=== PATIENT | male | born 1945 | race Caucasian/White ===

== ENCOUNTER 2021-06-22 14:44 | Observation (INO) | payer OTHER ==
[2021-06-22] MEDS ORDERED: ONDANSETRON 4 MG/2 ML VIAL IV PRN (15:40)
[2021-06-22 15:43] VITALS: BMI 41.6
--- NOTE | 2021-06-22 15:49 | P.HP ---
Certification for Inpatient Patient admitted to: Observation With expected LOS: <2 Midnights Practitioner: I am a practitioner with admitting privileges, knowledge of patient current condition, hospital course, and medical plan of care. Services: Services provided to patient in accordance with Admission requirements found in Title 42 Section 412.3 of the Code of Federal Regulations Patient History Date of Service: 06/22/21 Reason for admission: COVID, b/l PE History of Present Illness: 75-year-old male, PMH: A. fib on Xarelto, hypertension, hyperlipidemia. Transferred from [facility] for new diagnostic COVID-19 pneumonia and bilateral PEs. Patient has been having shortness of breath feeling tired, and cough over the last week. Progressively worsening, so he presented to [place]. He denies any recent fever/chills, no nausea/vomiting, no diarrhea, no abdominal pain. He reports strict compliance of all his medications including his Xarelto. Despite this, he is found to have bilateral small/subsegmental PEs. Work-up in urgent care/[facility]anding ER revealed significant elevated D- dimer, elevated BNP, imaging findings as noted above. Renal function is normal, no leukocytosis. Patient was noted to be hypoxic and dyspneic on exertion. On arrival to the hospital, patient is breathing comfortably at rest on room air, SPO2: 92-95%. Allergies No Known Allergies Allergy (Unverified 06/22/21 16:36) Home Medications: Atorvastatin Calcium [Lipitor] 40 mg PO BEDTIME 06/22/21 Candesartan Cilexetil [Atacand] 16 mg PO BEDTIME 06/22/21 Rivaroxaban [Xarelto] 1 tab PO BEDTIME 06/22/21 - Past Medical/Surgical History Diabetic: No -: HTN -: Hyperlipidemia -: HTN -: Afib -: pacemaker -: cardioversion Oct -: appy -: turbex - Family History Mother History Unknown: Yes -: Cancer - Social History Smoking Status: Never smoker Alcohol use: Yes CD- Drugs: No Caffeine use: Yes Place of Residence: Home Review of Systems 10-point ROS is otherwise unremarkable Physical Examination - Physical Exam General: Alert, In no apparent distress, Oriented x3 HEENT: Mucous membr. moist/pink, Sclerae nonicteric Neck: Supple Respiratory: Diminished, Crackles/rales Cardiovascular: Regular rate/rhythm, Edema (1-2+ edema to ankles bilaterally) Gastrointestinal: Soft and benign, Non-distended, No tenderness Musculoskeletal: No erythema, No tenderness Integumentary: No rashes, No significant lesion Neurological: Normal speech, Normal strength at 5/5 x4 extr, Normal affect Assessment and Plan - Advance Directives Does patient have a Living Will: Yes Does patient have a Durable POA for Healthcare: Yes Physician Review Additional Text: Problem List Acute hypoxemic respiratory failure secondary to COVID-19 pneumonia and bilateral PEs afib on xarelto h/o shanda-arrhythmia, s/p pacemaker HTN Chronic lower extremity edema -received 1mg/kg lovenox, regeneron, steroids, covid cocktail at [place] prior to transfer -admitted to ICU for overnight monitoring -patient was hypoxic / dyspneic on exertion. currently on room air, SpO2: 95% -patient was taking xarelto, and compliant, will switch to eliquis -start eliquis in AM -steroids, vitamin supplementation, O2 as needed -ambulatory pulse ox tomorrow, daily room air sats -pulm consulted VTE: eliquis Code: full Dispo: anticipate dc home in 24-48hrs Time Spent Managing Pts Care (In Minutes): 60
[2021-06-22] MEDS ORDERED: VALSARTAN 160 MG TAB PO SCH (21:00)
[2021-06-22] MEDS ORDERED: ATORVASTATIN 40 MG TAB PO SCH (21:00)
--- OUTSIDE RECORDS SUMMARY | 2021-06-23 00:06 | XMS REPORT | Continuity of Care Document ---
:1945 Author Organization [facility] t Address [address] [place] [address] Care Team Providers Name Role Phone MEGGAN Attending Clinician Unavailable MD MEGGAN Attending Clinician Unavailable ALBAN Attending Clinician Unavailable LANCE Attending Clinician Unavailable FASHAKEEL Admitting Clinician Unavailable MD MEGGAN Admitting Clinician Unavailable ALBAN Admitting Clinician Unavailable Problems This patient has no known problems. Allergies, Adverse Reactions, Alerts This patient has no known allergies or adverse reactions. Medications This patient has no known medications. Procedures This patient has no known procedures. Encounters Start End Encounter Admission Attending Care Care Encounter Source Date/Time Date/Time Type Type Clinicians Facility Department ID 2021-05-24 2021-05-24 Outpatient CRISTIAN BRODERICK [facility] [id number] [place] 00:00:00 00:00:[address] 2021-05-22 2021-05-22 Outpatient [facility]RISTIAN BRODERICK [facility] [id number] [place] 00:00:00 00:00:[address] 2021-01-30 2021-02-01 [facility] [id number] [place] 00:00:00 00:00:00 AMITKUMAR [address] 2020-11-08 2020-11-08 Outpatient LANCE [facility] [id number] [place] 00:00:00 00:00:00 GERARDO [address] 2020-10-18 2020-10-18 Outpatient [facility] [id number] [place] 00:00:00 00:00:[address] Results Test Description Test Time Test Comments Results Result Comments Source SARS-CoV-2 (COVID-19) RNA [Presence] in Respiratory sp ecimen by 2021-05-22 18:52:08 NORBERTO with probe detection Test Item Value Reference Range Interpretation Comme nts SARS-CoV-2 (COVID-19) RNA [Presence] in Respiratory Not detected No t-Detected specimen by NORBERTO with probe detection (test code = 81067-5) Whether patient is employed in a healthcare setting (test code = 29421-9) Whether the patient has symptoms related to condition of interest (test code = 42202-4) Patient was hospitalized because of this condition (test code = 05258-7) Whether the patient was admitted to intensive care unit (ICU) for condition of interest (test code = 50273-2) Whether patient resides in a congregate care setting (test code = 01467-9)
[2021-06-23 05:09] LABS: Absolute Lymphocytes (CBC) 1.3 K/uL (0.7-4.9); Basophils % 0.5 % (0-1.3); Hematocrit 45.1 % (39.6-49.0); Lymphocytes % 11.6 % (15.3-44.8); MPV 7.7 fL (7.6-11.3); RBC Red Blood Cell Count 5.05 M/uL (4.33-5.43)
[2021-06-23 05:34] LABS: ALT/SGPT 35 U/L (12-78); AST/SGOT 33 U/L (15-37); Albumin 2.5 g/dL (3.4-5.0); Alkaline Phosphatase 121 U/L (45-117); BUN Blood Urea Nitrogen 15 mg/dL (7-18); Bicarbonate 24 mmol/L (21-32); Bilirubin Total 0.6 mg/dL (0.2-1.0); Glucose Level 146 mg/dL (74-106); Magnesium 2.4 mg/dL (1.8-2.4); NT PRO-BNP 3764 pg/mL (<125); Potassium 4.1 mmol/L (3.5-5.1); Protein, Total 6.9 g/dL (6.4-8.2); Sodium Level 141 mmol/L (136-145)
--- NOTE | 2021-06-23 05:43 | P.PN ---
Date of Service: 06/23/21 Subjective: ROS: 10 point ROS as noted above, otherwise negative Physical exam GEN: Alert, oriented, NAD HEENT: Normal conjunctiva, sclera anicteric CV: Regular rate and rhythm, no edema Pulm: Nonlabored respiration on room air ABD: Soft, nontender, nondistended MSK: No joint tenderness Integumentary: No rashes Neuro: Normal speech, normal affect Problem List Acute hypoxemic respiratory failure secondary to COVID-19 pneumonia and bilateral PEs afib on xarelto h/o shanda-arrhythmia, s/p pacemaker HTN Chronic lower extremity edema -received 1mg/kg lovenox, regeneron, steroids, covid cocktail at [place] prior to transfer -admitted to ICU for overnight monitoring -patient was hypoxic / dyspneic on exertion. on room air on arrival, SpO2: 95% -patient was taking xarelto, and compliant, will switch to eliquis -start eliquis in AM -steroids, vitamin supplementation, O2 as needed -ambulatory pulse ox today, daily room air sats -pulm consulted VTE: eliquis Code: full Dispo: anticipate dc home in next 24hrs, may need home O2 Time Spent Managing Pts Care (In Minutes): 35
[2021-06-23 06:12] LABS: C-Reactive Protein 78.8 mg/L (<3.00); Ferritin 576.9 ng/mL (26-388)
--- NOTE | 2021-06-23 07:08 | RAD REPORT ---
EXAM DESCRIPTION: RAD - Chest Single View - 06/23/2021 7:02 am CLINICAL HISTORY: f/u COVID, hypoxia COMPARISON: CHEST PA AND LAT 2 VIEW dated 07/21/2011 FINDINGS: Lines: None. Lungs: Mild scattered bilateral airspace diseas. Chronic low lung volumes. Pleural: No significant pleural effusions or pneumothorax. Cardiac: Enlarged cardiac silhouette. Pacemaker. Bones: No acute fractures. Other: IMPRESSION: Mild diffuse bilateral airspace opacities which could reflect multifocal pneumonia, incl uding Covid-19.
[2021-06-23] MEDS ORDERED: APIXABAN 5 MG TABLET PO SCH (09:00)
[2021-06-23] MEDS ORDERED: dexAMETHasone 4 MG TAB PO SCH (09:00)
[2021-06-23] MEDS ORDERED: VITAMIN D 1000 UNIT TAB PO SCH (09:00)
--- NOTE | 2021-06-23 10:55 | P.CNS ---
Date of Consult: 06/22/21 Reason for Consult: Mills virus pneumonia possible PE Chief Complaint: COVID, b/l PE History of Present Illness: Patient is 75 years of age got sick for a past week admitted from [facility] emergency room with a diagnosis of mills virus pneumonia and insight acute thrombosis in the lungs he feels fine oxygen level is satisfactory he is off oxygen Allergies No Known Allergies Allergy (Unverified 06/22/21 16:36) Home Medications: Atorvastatin Calcium [Lipitor] 40 mg PO BEDTIME 06/22/21 Candesartan Cilexetil [Atacand] 16 mg PO BEDTIME 06/22/21 Rivaroxaban [Xarelto] 1 tab PO BEDTIME 06/22/21 - Past Medical/Surgical History Diabetic: No -: HTN -: Hyperlipidemia -: HTN -: Afib -: pacemaker -: cardioversion Oct -: appy -: turbex - Family History Mother History Unknown: Yes Medical History: Cancer - Social History Alcohol use: Yes CD- Drugs: No Caffeine use: Yes Place of Residence: Home Review of Systems 10-point ROS is otherwise unremarkable Physical Examination Temp Pulse Resp BP Pulse Ox 97 F 60 18 157/88 H 94 06/23/21 04:00 06/23/21 08:00 06/23/21 08:00 06/23/21 08:00 06/23/21 08:00 General: Alert, In no apparent distress, Oriented x3 Respiratory: Crackles/rales Cardiovascular: No edema, Normal S1 S2 Laboratory Data (last 24 hrs) 06/23/21 04:49: Sodium 141, Potassium 4.1, BUN 15, Creatinine 0.79, Glucose 146 H, Magnesium 2.4, Total Bilirubin 0.6, AST 33, ALT 35, Alkaline Phosphatase 121 H 06/23/21 04:49: WBC 11.00 H, Hgb 14.9, Hct 45.1, Plt Count 360 - Problems (1) Pneumonia due to coronavirus disease 2019 Current Visit: Yes Status: Acute Plan: Patient is 75 years of age admitted with mills virus pneumonia is been vaccinated with fires are vaccine presented to the all tests emergency room CT scan showed small occlusive a nonocclusive thrombi involving the subsegmental branches most likely insitu thrombosis from mills virus no evidence of heart strain bilateral extensive ground-glass changes consistent with mills virus pneumonia/patient is already on Xarelto continue with current dose of Xarelto add small dose of aspirin patient can be discharged home on Decadron 2 mg twice a day for about 10 days follow-up with me in 2 weeks evaluate for oxygen use at home continue with Xarelto 20 mg once a day
[2021-06-23 12:15] VITALS: O2SAT 98
--- NOTE | 2021-06-23 13:08 | RAD REPORT ---
EXAM DESCRIPTION: US - Extrem Venous W Compress Sonido - 06/23/2021 12:12 pm CLINICAL HISTORY: Swelling COMPARISON: None. TECHNIQUE: Real-time sonographic evaluation of the bilateral lower extremity deep venous systems was performed. FINDINGS: Normal compressibility, flow augmentation, phasic flow and spontaneous flow is identified in both the left and right lower extremity deep venous systems. No intraluminal filling defects seen. IMPRESSION: No DVT in either lower extremity.
[2021-06-23 14:25] VITALS: TEMP 97.8
[2021-06-23 14:27] VITALS: BP 147/69
--- NOTE | 2021-06-23 16:56 | P.DS ---
Admission Date: 06/22/21 Discharge Date: 06/23/21 Disposition: ROUTINE DISCHARGE Discharge Condition: GOOD Reason for Admission: COVID, b/l PE Consultations: Pulmonology - Dr. Rubio Procedures: Extremity U/S (06/23): FINDINGS: Normal compressibility, flow augmentation, phasic flow and spontaneous flow is identified in both the left and right lower extremity deep venous systems. No intraluminal filling defects seen. IMPRESSION: No DVT in either lower extremity. CXR (06/23): IMPRESSION: Mild diffuse bilateral airspace opacities which could reflect multifocal pneumonia, including Covid-19. Problem List Acute hypoxemic respiratory failure secondary to COVID-19 pneumonia and bilateral PEs afib on xarelto h/o shanda-arrhythmia, s/p pacemaker HTN Chronic lower extremity edema Brief History of Present Illness: 75-year-old male, PMH: A. fib on Xarelto, hypertension, hyperlipidemia. [facility]red [facility] for new diagnostic COVID-19 pneumonia and bilateral PEs. Patient has been having shortness of breath feeling tired, and cough over the last week. Progressively worsening, so he presented to [place]. He denies any recent fever/chills, no nausea/vomiting, no diarrhea, no abdominal pain. He reports strict compliance of all his medications including his Xarelto. Despite this, he is found to have bilateral small/subsegmental PEs. Work-up in urgent care/freestanding ER revealed significant elevated D- dimer, elevated BNP, imaging findings as noted above. Renal function is normal, no leukocytosis. Patient was noted to be hypoxic and dyspneic on exertion. On arrival to the hospital, patient is breathing comfortably at rest on room air, SPO2: 92-95%. Patient was treated with steroids, vitamin supplementation, and Regeneron. Hospital Course: Received Lovenox 1mg/kg at [place]. Initially transitioned to Eliquis. Pulmonology was consulted and did not feel this was failure of Xarelto since it was questionable subsegmental PEs in setting of COVID pneumonia. Patient was treated with steroids and vitamin supplementation. He did not require oxygen supplementation at rest, nor with ambulation. He was deemed stable for discharge home to continue his Xarelto at current dose and steroids. Follow up: PCP in 3-5 days Pulmonology in ~1-2 weeks. Vital Signs/Physical Exam: Temp Pulse Resp BP Pulse Ox 97.8 F 60 19 147/69 H 94 06/23/21 12:00 06/23/21 14:00 06/23/21 14:00 06/23/21 14:00 06/23/21 14:00 General: Alert, In no apparent distress, Oriented x3 HEENT: Sclerae nonicteric Respiratory: Clear to auscultation bilaterally, Diminished (at bases bilaterally) Cardiovascular: Regular rate/rhythm, Edema (trace-1+ b/l to ankles) Gastrointestinal: Soft and benign, Non-distended, No tenderness Musculoskeletal: No tenderness Integumentary: No rashes, No significant lesion Neurological: Normal speech, Normal affect Laboratory Data at Discharge: WBC 11.00 K/uL (4.3-10.9) H 06/23/21 04:49 Hgb 14.9 g/dL (13.6-17.9) 06/23/21 04:49 Hct 45.1 % (39.6-49.0) 06/23/21 04:49 Plt Count 360 K/uL (152-406) 06/23/21 04:49 Sodium 141 mmol/L (136-145) 06/23/21 04:49 Potassium 4.1 mmol/L (3.5-5.1) 06/23/21 04:49 BUN 15 mg/dL (7-18) 06/23/21 04:49 Creatinine 0.79 mg/dL (0.55-1.3) 06/23/21 04:49 Glucose 146 mg/dL (74-106) H 06/23/21 04:49 Magnesium 2.4 mg/dL (1.8-2.4) 06/23/21 04:49 Total Bilirubin 0.6 mg/dL (0.2-1.0) 06/23/21 04:49 AST 33 U/L (15-37) 06/23/21 04:49 ALT 35 U/L (12-78) 06/23/21 04:49 Alkaline Phosphatase 121 U/L (45-117) H 06/23/21 04:49 Home Medications: Atorvastatin Calcium [Lipitor] 40 mg PO BEDTIME 06/22/21 Candesartan Cilexetil [Atacand] 16 mg PO BEDTIME 06/22/21 Rivaroxaban [Xarelto] 1 tab PO BEDTIME 06/22/21 Aspirin [Aspirin EC 81 MG] 81 mg PO DAILY 30 Days #30 tablet. 06/23/21 dexAMETHasone [Dexamethasone] 2 mg PO BID 14 Days #28 tablet 06/23/21 New Medications: Aspirin [Aspirin EC 81 MG] 81 mg PO DAILY 30 Days #30 tablet. dexAMETHasone [Dexamethasone] 2 mg PO BID 14 Days #28 tablet Physician Discharge Instructions: PROBLEM: COVID-19 Pneumonia GOAL: Clear understanding of disease process INSTRUCTIONS: You were found to have COVID-19 pneumonia complicated by small subsegmental pulmonary emboli. You were treated with anticoagulation and steroids with improvement of your symptoms. You were evaluated at rest and with ambulation and did not require oxygen supplementation. Pulmonology, Dr. Rubio was consulted and reviewed the imaging. Recommended continuing the current dose of Xarelto and adding 81mg aspirin daily. You are discharged home with 14 days of steroid medication. Follow up with your PCP in within 1 week. Follow up with Dr. Rubio in 1-2 weeks. If you have any questions regarding hospital stay, feel free to call [phone]. Continue home medications as previously prescribed, no other changes in your medications. Diet: AHA Activity: Ad atif DME DME: Date Ordered: Name of Company: [employer] Services Needed: None Name of Company: Date or Referral: IMMUNIZATION Influenza Vaccine Indicated: No Influenza Vaccine Given: Date Given: Pneumonia Vaccine Indicated: No Pneumonia Vaccine Given: Date Given: Diet: AHA Activity: Ad atif Time spent managing pt's care (in minutes): 45
== END 2021-06-23 14:50 | disposition home or self-care (01) ==
LOC: 3RD-ICU 14:44 → INTOOBSV 14:44
PROVIDERS: ADMIT Hospitalist; ATTEND Hospitalist
DX: U07.1 COVID-19 (principal); J12.82 Pneumonia due to coronavirus disease 2019; J96.01 Acute respiratory failure with hypoxia; I26.99 Other pulmonary embolism without acute cor pulmonale; I48.91 Unspecified atrial fibrillation; I10 Essential (primary) hypertension; R60.0 Localized edema; I49.8 Other specified cardiac arrhythmias; E78.5 Hyperlipidemia, unspecified; Z79.01 Long term (current) use of anticoagulants; Z95.0 Presence of cardiac pacemaker; Z80.9 Family history of malignant neoplasm, unspecified
CPT/HCPCS: 85025; 36415; 83735; 85379; 82728; 80053; 83880; 86140; 71045; 93970; 94760 ×2; G0378 ×3; J8540

== ENCOUNTER 2024-03-30 20:15 | Emergency (ER) | payer OTHER ==
[2024-03-30] MEDS ORDERED: ACETAMINOPHEN 500 MG TAB ONE (20:45)
--- NOTE | 2024-03-30 21:29 | RAD REPORT ---
EXAM DESCRIPTION: CT - [id number] - 03/30/2024 9:21 pm CLINICAL HISTORY: Trauma, head and neck injury. TRAUMA COMPARISON: <Comparisons> TECHNIQUE: Axial 5 mm thick images of the head were obtained. Axial 2 mm thick images of the cervical spine were obtained with sagittal and coronal reconstruction images generated and reviewed. All CT scans are performed using dose optimization technique as appropriate and may include automated exposure control or mA/KV adjustment according to patient size. FINDINGS: CT HEAD WITHOUT CONTRAST: No acute hemorrhage, hydrocephalus or extra-axial collection is identified.No areas of brain edema or midline shift. The paranasal sinuses and mastoids are clear.The calvarium is intact. Left frontal scalp hematoma. CT CERVICAL SPINE WITHOUT CONTRAST: No fracture or subluxation.Mild cervical spondylosis.No prevertebral soft tissues swelling is identif ied. IMPRESSION: No acute intracranial or cervical spine findings.
--- NOTE | 2024-03-30 21:39 | RAD REPORT ---
EXAM DESCRIPTION: RAD - Chest Single View - 03/30/2024 9:32 pm CLINICAL HISTORY: RIB PAIN - LEFT Chest pain. COMPARISON: <Comparisons> FINDINGS: Portable technique limits examination quality. The lungs are grossly clear. The heart is normal in size. No displaced fractures.Dual lead pacer deidra ce. IMPRESSION: No acute intrathoracic process suspected.
--- NOTE | 2024-03-30 21:54 | ER ---
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 Pt noted to have bruising cm10 on to left eye. Pt reports taking a daily aspirin. Pt also reports pain to left side of ribs. No LOC. Coronavirus screen: Client denies travel out of the [place] in the last 14 days. At this time, the client does not indicate any symptoms associated with coronavirus-19. Ebola Screen: Patient denies travel to an Ebola-affected area in the 21 days before illness onset. No symptoms or risks identified at this time. Initial Sepsis Screen: Does the patient meet any 2 criteria? No. Patient's initial sepsis screen is negative. Does the patient have a suspected source of infection? No. Patient's initial sepsis screen is negative. Risk Assessment: Do you want to hurt yourself or someone else? Patient reports no desire to harm self or others. Onset of symptoms was March 30, 2024. 20:28 Method Of Arrival: Ambulatory cm10 20:28 Acuity: CATHY 3 cm10 Triage Assessment: 20:30 General: Appears in no apparent distress. comfortable, Behavior is calm, cooperative. cm10 Neuro: No deficits noted. Level of Consciousness is awake, alert, obeys commands, Oriented to person, place, time, situation, Appropriate for age. Respiratory: No deficits noted. Airway is patent Respiratory effort is even, unlabored, Respiratory pattern is regular, symmetrical. Historical: - Allergies: 20:30 No Known Allergies; cm10 - PMHx: 20:30 Hypertensive disorder; cm10 - PSHx: 20:30 Appendectomy; Pacemaker; cm10 - Immunization history:: Adult Immunizations up to date. - Infectious Disease History:: Denies. - Social history:: Smoking status: Patient denies any tobacco usage or history of. Screenin:[facility] ED Fall Risk Assessment (Adult) History of falling in the last 3 months, vc1 including since admission Yes- single mechanical fall (1 pt) Confusion or Disorientation No (0 pts) Intoxicated or Sedated No (0 pts) Impaired Gait No (0 pts) Mobility Assist Device Used No (0 pt) Altered Elimination No (0 pt) Score/Fall Risk Level 0 - 2 = Low Risk Oriented to surroundings, Maintained a safe environment, Educated pt \T\ family on fall prevention, incl call for assistance when getting out of bed. Abuse screen: Denies threats or abuse. Nutritional screening: No deficits noted. Tuberculosis screening: No symptoms or risk factors identified. Assessment: 20:48 General: Appears in no apparent distress. comfortable, obese, well groomed, well vc1 developed, well nourished, Behavior is calm, cooperative, appropriate for age. Pain: Complains of pain in inner aspect of left eyebrow, middle aspect of left eyebrow, outer aspect of left eyebrow and left supraorbital ridge Pain does not radiate. Neuro: Level of Consciousness is awake, alert, obeys commands, Oriented to person, place, time, situation, Appropriate for age. Cardiovascular: No deficits noted. Heart tones S1 S2 Capillary refill < 3 seconds Patient's skin is warm and dry. Respiratory: Airway is patent Respiratory effort is even, unlabored, Respiratory pattern is regular, symmetrical, Breath sounds are clear bilaterally. GI: Abdomen is round non-distended. : No deficits noted. No signs and/or symptoms were reported regarding the genitourinary system. EENT: No deficits noted. No signs and/or symptoms were reported regarding the EENT system. Derm: Bruising that is dark purple, on left eye. Musculoskeletal: No deficits noted. No signs and/or symptoms reported regarding the musculoskeletal system. 22:10 Reassessment: No changes from previously documented assessment. Patient and/or family vc1 updated on plan of care and expected duration. Pain level reassessed. Patient is alert, oriented x 3, equal unlabored respirations, skin warm/dry/pink. Vital Signs: 20:28 BP 108 / 65; Pulse 78; Resp 16; Temp 98.2(O); Pulse Ox 97% on R/A; Weight 99.79 kg; cm10 Height 5 ft. 2 in. ; Pain 4/10; 22:10 BP 106 / 64; Pulse 76; Resp 16; Pulse Ox 98% ; vc1 20:28 Body Mass Index 40.24 (99.79 kg, 157.48 cm) cm10 20:28 Pain Scale: Adult cm10 ED Course: 20:17 Patient arrived in ED. ra3 20:22 Suzette Wagner FNP-C [facility]. kb 20:22 Dave Thomas MD is Attending Physician. kb 20:30 Triage completed. cm10 20:31 Arm band placed on Patient placed in an exam room. cm10 20:48 Lydia Morales, RN is Primary Nurse. vc1 20:50 Patient has correct armband on for positive identification. Bed in low position. Call vc1 light in reach. 21:53 CT Head C Spine In Process Unspecified. EDMS 21:53 Chest Single View XRAY In Process Unspecified. EDMS 22:10 No provider procedures requiring assistance completed. Patient did not have IV access vc1 during this emergency room visit. 22:10 Wound care: ice pack applied. vc1 22:11 Provided Education on: pain management; ice pack. vc1 Administered Medications: 20:48 Drug: Acetaminophen PO 1000 mg PO once Route: PO; vc1 22:12 Follow up: Response: No adverse reaction; Marked relief of symptoms; Pain is decreased vc1 Medication: 20:50 VIS not applicable for this client. vc1 Outcome: 21:49 Discharge ordered by . kb 22:11 Discharged to home ambulatory, vc1 22:11 Condition: good 22:11 Discharge instructions given to patient, Instructed on discharge instructions, follow up and referral plans. Demonstrated understanding of instructions, follow-up care, 22:12 Patient left the ED. vc1 Signatures: Dispatcher [employer] EDMS Suzette Wagner FNP-C FNP-Ckb Calcote, Vanessa, RN RN vc1 Paige Baer RN RN cmKiara Jiménez ra3
--- NOTE | 2024-03-30 21:54 | EDPHYS ---
Physician Documentation [facility] Name: Federico Nj Age: 78 yrs Sex: Male : 1945 Arrival Date: 03/30/2024 Time: 20:15 Bed 12 Private MD: ED Physician Dave Thomas HPI: 03/30 20:57 This 78 yrs old Male presents to ER via Ambulatory with complaints of Fall Injury, kb Facial Injury. 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 Pt states he tripped in the kitchen and fell. Denies loc. Reports slight pain to left lateral chest as well. Historical: - Allergies: 20:30 No Known Allergies; cm10 - PMHx: 20:30 Hypertensive disorder; cm10 - PSHx: 20:30 Appendectomy; Pacemaker; cm10 - Immunization history:: Adult Immunizations up to date. - Infectious Disease History:: Denies. - Social history:: Smoking status: Patient denies any tobacco usage or history of. ROS: 20:55 Constitutional: As per HPI kb Exam: 20:55 Constitutional: This is a well developed, well nourished patient who is awake, alert, kb and in no acute distress. Head/Face: Normocephalic, atraumatic. ENT: Moist Mucous membranes Cardiovascular: Regular rate Respiratory: Respirations even and unlabored. No increased work of breathing. Talking in full sentences Abdomen/GI: Soft, non-tender. No distention MS/ Extremity: Pulses equal, no cyanosis. Neurovascular intact. Full, normal range of motion. Neuro: Awake and alert, GCS 15, oriented to person, place, time, and situation. Moves all extremities. Normal gait. 20:55 Eyes: Periorbital structures: swelling, that is mild, on the left supraorbital ridge, ecchymosis, that is mild, on the left supraorbital ridge, 20:55 Chest/axilla: Inspection: normal, Palpation: tenderness, that is mild, of the left lateral anterior chest, that totally reproduces the patient's complaints, Vital Signs: 20:28 BP 108 / 65; Pulse 78; Resp 16; Temp 98.2(O); Pulse Ox 97% on R/A; Weight 99.79 kg; cm10 Height 5 ft. 2 in. ; Pain 4/10; 22:10 BP 106 / 64; Pulse 76; Resp 16; Pulse Ox 98% ; vc1 20:28 Body Mass Index 40.24 (99.79 kg, 157.48 cm) cm10 20:28 Pain Scale: Adult cm10 MDM: 20:22 Patient medically screened. kb 20:57 Differential diagnosis: contusion, fracture. Data reviewed: vital signs, nurses notes. kb 21:48 Counseling: I had a detailed discussion with the patient and/or guardian regarding the kb historical points, exam findings, and any diagnostic results supporting the discharge/admit diagnosis, radiology results, the need for outpatient follow up, a family practitioner, to return to the emergency department if symptoms worsen or persist or if there are any questions or concerns that arise at home. 03/30 20:31 Order name: CT Head C Spine; Complete Time: 21:53 kb 03/30 20:31 Order name: Chest Single View XRAY; Complete Time: 21:53 kb Administered Medications: 20:48 Drug: Acetaminophen PO 1000 mg PO once Route: PO; vc1 22:12 Follow up: Response: No adverse reaction; Marked relief of symptoms; Pain is decreased vc1 Disposition: 03/31 01:21 Co-signature as Attending Physician, Dave Thomas MD I agree with the assessment and [facility] plan of care. Disposition Summary: 03/30/24 21:49 Discharge Ordered Notes: Location: Home kb Condition: Stable kb Diagnosis - Fall on same level, unspecified kb - Unspecified injury of head, initial encounter kb Followup: kb - With: Emergency Department - When: As needed - Reason: Worsening of condition Followup: kb - With: Private Physician - When: 2 - 3 days - Reason: Recheck today's complaints, Continuance of care, Re-evaluation by your physician Discharge Instructions: - Discharge Summary Sheet kb - Chest Contusion, Adult, [id number] kb - Head Injury, Adult, [id number] kb Forms: - Medication Reconciliation Form kb - Antibiotic Education kb - Prescription Opioid Use kb - Patient Portal Instructions kb - Leadership Thank You Letter kb Signatures: Dispatcher [employer] EDSuzette Gan, AVILAC ANDREAS-Dave Painting MD MD cha Calcote, Vanessa RN RN vc1 Paige Baer RN RN cm10 Corrections: (The following items were deleted from the chart) 03/30 20:31 20:31 Head C Spine MPR Wo Con+CT.RAD.BRZ ordered. EDMS EDMS : 20:32 Chest Single View+RAD.RAD.BRZ ordered. EDMS EDMS
[2024-03-30 22:53] VITALS: TEMP 98.2
[2024-03-30 22:55] VITALS: BP 106/64; O2SAT 98
== END 2024-03-30 22:12 | disposition home or self-care (01) ==
LOC: ER 20:15
DX: S09.90XA Unspecified injury of head, initial encounter (principal); R07.9 Chest pain, unspecified; W18.30XA Fall on same level, unspecified, initial encounter; I10 Essential (primary) hypertension; Z95.0 Presence of cardiac pacemaker
CPT/HCPCS: 70450; 71045; 72125

== ENCOUNTER 2024-10-27 12:00 | Day surgery (SDC) | payer OTHER ==
[2024-10-24 14:35] LABS: Absolute Basophils 0.1 K/uL (0-0.5); Absolute Eosinophils 0.1 K/uL (0-0.5); Absolute Lymphocytes (CBC) 2.1 K/uL (0.7-4.9); Absolute Monocytes 0.6 K/uL (0.1-1.3); Absolute Neutrophil 3.7 K/uL (1.8-8.0); Basophils % 0.8 % (0-1.3); Eosinophils % 1.2 % (0-4.4); Hematocrit 42.4 % (39.6-49.0); Hemoglobin 14.3 g/dL (13.6-17.9); Lymphocytes % 31.8 % (15.3-44.8); MCH 30.6 pg (27.0-35.0); MCHC 33.9 g/dL (32.0-36.0); MCV 90.4 fL (80-100); MPV 8.6 fL (7.6-11.3); Monocytes % 9.4 % (3.3-12.3); Neutrophils % 56.8 % (41.7-73.7); Nucleated Red Blood Cells % 0.1 % (0-0); Platelets 232 thou/uL (152-406); RBC Red Blood Cell Count 4.68 M/uL (4.33-5.43); Red Cell Distribution Width 13.5 % (12.1-15.2)
[2024-10-24 14:40] LABS: PT Prothrombin Time 12.7 SECONDS (10-13.0); PTT, Activated Partial Thromb 34.7 SECONDS (27.2-37.4); Protime INR 1.12
[2024-10-24 14:45] LABS: Anion Gap 10.8 mEq/L (5.0-15.0); Potassium 3.8 mEq/L (3.5-5.1)
--- NOTE | 2024-10-24 15:56 | RAD REPORT ---
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 CARDIAC/MEDIASTINUM: Stable size and configuration. UPPER ABDOMEN: No significant abnormality. BONES: No acute abnormality. LINES/TUBES/OTHER: Pacemaker present. IMPRESSION: Likely some mild basilar atelectasis but otherwise no acute process.
--- NOTE | 2024-10-26 12:36 | EKG ---
Test Date: 2024-10-24 Test Time: 13:39:49 Hot Roll Laminator: HERIBERTO MEASUREMENT RESULTS: Intervals: Rate: 65 OR: QRSD: 122 QT: 438 QTc: 455 [place]: P: OR: QRS: 108 T: -60 INTERPRETIVE STATEMENTS: Normal sinus rhythm Rightward axis Anterior infarct, age undetermined T wave abnormality, consider inferior ischemia Abnormal ECG Compared to ECG 07/21/2011 16:08:47 Right-axis deviation now present First degree AV block no longer present Left anterior fascicular block no longer present Myocardial infarct finding still present T-wave abnormality still present Possible ischemia still present Electronically Signed On 10-26-24 12:27:46 CDT by Genaro Hood
[2024-10-27] MEDS ORDERED: NA CHLORIDE 0.9% 500 ML ONE (12:30)
[2024-10-27] MEDS ORDERED: HEPA 1000U/500MLS 2,000 UNIT/1,000 ML BAG IV ONE (14:01)
[2024-10-27] MEDS ORDERED: HEPARIN 5000 UNIT/ML 1 ML VIAL ONE (14:02)
[2024-10-27] MEDS ORDERED: LIDOCAINE 1% 20 ML MDV ONE (14:02)
[2024-10-27] MEDS ORDERED: ATROPINE SULF 1 MG/10 ML SYR IV ONE (14:02)
[2024-10-27] MEDS ORDERED: HEPARIN 10,000 UNIT/10 ML VIAL IV ONE (14:02)
[2024-10-27] MEDS ORDERED: MIDAZOLAM HCL 2 MG/2 ML INJ ONE (14:02)
[2024-10-27] MEDS ORDERED: FENTANYL CITR 100 MCG/2 ML ONE (14:03)
[2024-10-27] MEDS ORDERED: VERAPAMIL HCL 10 MG/4 ML VIAL IV ONE (14:11)
[2024-10-27] MEDS ORDERED: TICAGRELOR 90 MG TABLET PO ONE (15:05)
[2024-10-27] MEDS ORDERED: ASPIRIN 325 MG TAB ONE (15:05)
[2024-10-27 19:26] VITALS: BP 116/67; O2SAT 96
--- NOTE | 2024-10-27 22:51 | OP ---
Date of Procedure: 10/27/2024 Surgeon: MACY KIDD Procedures Performed: 1. Coronary angiogram. 2. Left heart catheterization. 3. Right heart catheterization. 4. PCI of severe mid LAD stenosis, used 3.5 x 32 mm drug-eluting stent, post dilated the proximal seg ment to 4.0 using 4.0 x 12 NC balloon. Indications: 1. Aortic valve stenosis. 2. Chest pain. Access: 1. Right radial artery 6-Cypriot, closed with TR band. 2. Right IJ 7-Cypriot, closed with manual pressure. Complications: None. Bleeding: Less than 50 mL. Anesthesia: Total sedation time was close to 100 minutes, used fentanyl and Versed. Description Of Procedure: After risks, benefits, and alternatives were explained, the patient agreed to procedure and signed informed consent. The patient was brought into cardiac catheterization labo ratory, prepped and draped in sterile fashion. Then, I accessed right IJ using micropuncture kit, ul trasound guidance, and placed a 7-Cypriot [place] sheath, and then I accessed right radial artery usi ng pediatric micropuncture kit and ultrasound guidance, and placed a 6-Cypriot [place] sheath and then took a 7-Cypriot balloon-tipped [place] catheter through the IJ access into the right atrium, right vent ricle, pulmonary artery and wedge, and obtained waveform and pressure and then obtained cardiac outpu t by thermodilutional method, and then removed the [place]. IJ access was removed. Manual pressure was applied for hemostasis with good hemostasis and then we took the [place] catheter through the radial a ccess into the aortic root, engaged left main, took standard views, and then the RCA, took standard v iews and then over the wire, the catheter was pushed across the aortic valve into the LV, measured th e LVEDP. Pullback did not record any gradient. Then, we gave systemic heparin to assure ACT level a benjamin 250 throughout the procedure, loaded with Brilinta 180 and aspirin 81 mg and then took an EBU 4 guide into aortic root, engaged left main, took run-through wire into the LAD and then using a 3.0 an d then 3.5 balloon, lesion expanded very well. Subsequently took a 3.5 x 32 mm Synergy drug-eluting stent across the stenosis very well and stent was deployed successfully and then I used a 4.0 x 12 mm balloon to post-dilate the proximal segment of the stent and had this stented to the proximal LAD. Excellent results at the end. Wires were removed and final angiogram was satisfactory and removed th e catheter and the guide and the sheath and placed TR band with good hemostasis. Findings: 1. Left main is very long shaft and it has proximal 20% stenosis. 2. LAD; proximal segment is normal. In the mid segment, there is a focal 90% stenosis, heavily calci fied, then 80% and then 70% stenosis, post successful placement of a long 3.5 x 32 mm Synergy drug-el uting stent. Then, the LAD in the mid to distal segment, there is focal 40% stenosis. Diagonal bran ches with luminal irregularity. The rest of the LAD is normal. 3. Left circumflex is large and dominant vessel, proximal 30%. OM has mid 50% and then distally in t he left PDA, there is 20% stenosis. 4. RCA has proximal 40% stenosis and it is rather small vessel. 5. Elevated LVEDP at 20 mmHg. Right heart catheterization numbers: RA pressure was 11, RV pressure was 39/4, mean of 11. PA press ure is 39/23, mean of 29. Pulmonary wedge pressure was 8 mmHg. LVEDP between 15 and 20 mmHg. Cardi ac output averages 5.6 L/minute and the gradient across the aortic valve is only 17 mmHg and aortic v alve area was 1.63 cm2. Conclusions: 1. Severe mid LAD stenosis, status post successful PCI as above. 2. Moderate aortic valve stenosis, which is flow low gradient. Plan: Aspirin, Brilinta, high-dose statin. Follow up with me in the office in 1 week. SR/MODL Voice ID: [id number] Report ID: [id number]
== END 2024-10-27 19:15 | disposition home or self-care (01) ==
LOC: CCL 12:00
PROVIDERS: ATTEND Internal Medicine
PROC: 4A023N8 Measurement of Cardiac Sampling and Pressure, Bilateral, Percutaneous Approach (ICD-10-PCS; principal; 2024-10-27)
PROC: B2111ZZ Fluoroscopy of Multiple Coronary Arteries using Low Osmolar Contrast (ICD-10-PCS; 2024-10-27)
PROC: 027034Z Dilation of Coronary Artery, One Artery with Drug-eluting Intraluminal Device, Percutaneous Approach (ICD-10-PCS; 2024-10-27)
DX: I25.110 Atherosclerotic heart disease of native coronary artery with unstable angina pectoris (principal); I35.0 Nonrheumatic aortic (valve) stenosis; I65.22 Occlusion and stenosis of left carotid artery; I10 Essential (primary) hypertension; I48.0 Paroxysmal atrial fibrillation; E78.2 Mixed hyperlipidemia; I27.20 Pulmonary hypertension, unspecified; G47.33 Obstructive sleep apnea (adult) (pediatric); E66.01 Morbid (severe) obesity due to excess calories
CPT/HCPCS: 93460; C9600; 36415; 71046; 76937; 80048; 85025; 85347; 85610; 85730; 93005; 99152; 99153; C1725; C1893; J0461; J1644; J2003; J2250; J3010; J7040; Q9967

== ENCOUNTER 2024-10-28 05:37 | Inpatient (IN) | payer OTHER ==
--- NOTE | 2024-10-28 06:32 | RAD REPORT ---
EXAMINATION: Chest Single View CLINICAL HISTORY: slurry speech COMPARISON: March 30, 2024 FINDINGS: The lungs are clear. There is no pleural effusion or pneumothorax. The cardiomediastinal silhouette i s without acute process. The osseous structures are without acute process. A pacemaker device is in satisfactory position. IMPRESSION: No acute process. RECOMMENDATIONS: Electronically signed by: Yg Franco MD 10/28/2024 06:19 AM CDT RP Due to temporary technical issues with the PACS/Stigni.bg reporting system, reports are being analy d by the in-house radiologist without review as a courtesy to ensure prompt reporting the interpreting radiologist is fully responsible for the content of the report. Transcribed Date/Time: 10/28/2024 6:32 AM
[2024-10-28 06:33] LABS: Absolute Basophils 0.1 K/uL (0-0.5); Absolute Eosinophils 0.1 K/uL (0-0.5); Absolute Lymphocytes (CBC) 2.2 K/uL (0.7-4.9); Absolute Monocytes 0.7 K/uL (0.1-1.3); Absolute Neutrophil 4.5 K/uL (1.8-8.0); Basophils % 0.8 % (0-1.3); Eosinophils % 1.4 % (0-4.4); Hematocrit 42.6 % (39.6-49.0); Hemoglobin 14.1 g/dL (13.6-17.9); Lymphocytes % 29.4 % (15.3-44.8); MCH 30.7 pg (27.0-35.0); MCHC 33.2 g/dL (32.0-36.0); MCV 92.5 fL (80-100); MPV 7.9 fL (7.6-11.3); Monocytes % 8.9 % (3.3-12.3); Neutrophils % 59.5 % (41.7-73.7); Nucleated Red Blood Cells % 0.1 % (0-0); Platelets 237 thou/uL (152-406); Red Cell Distribution Width 13.3 % (12.1-15.2)
--- NOTE | 2024-10-28 06:34 | RAD REPORT ---
EXAMINATION: Ct Stroke Brain Wo Cont CLINICAL HISTORY: STROKE ALERT COMPARISON: March 30, 2024 TECHNIQUE: Contiguous noncontrast axial images of the head were obtained. Sagittal and coronal reform atted images are generated for review. This exam was performed according to our departmental dose-optimization program, which includes automated exposure control, adjustment of the mA and/or kV according to patient size and/or use of iterative reconstruction technique. FINDINGS: BRAIN/VENTRICLES: There is no acute intracranial hemorrhage, mass effect or midline shift. No abnorma l extra-axial fluid collections. The noland-white differentiation is maintained without evidence of acute infarct. There is no evidence of hydrocephalus. Nonspecific periventricular and deep white darren er hypodensities are likely the result of chronic small vessel ischemic disease. ORBITS: The visualized portions of the orbits demonstrate no acute abnormality. SINUSES: The visualized paranasal sinuses and mastoid air cells demonstrate no acute abnormality. SOFT TISSUE/SKULL: No acute abnormality of the visualized skull. The soft tissues are intact. IMPRESSION: No acute intracranial abnormality. RECOMMENDATIONS: Electronically signed by: Yg Franco MD 10/28/2024 06:19 AM CDT Due to temporary technical issues with the PACS/Enviable [employer] reporting system, reports are being analy d by the in-house radiologist without review as a courtesy to ensure prompt reporting the interpreting radiologist is fully responsible for the content of the report. Transcribed Date/Time: 10/28/2024 6:34 AM
[2024-10-28 06:36] LABS: PT Prothrombin Time 12.5 SECONDS (10-13.0); PTT, Activated Partial Thromb 33.5 SECONDS (27.2-37.4); Protime INR 1.1
[2024-10-28 07:34] LABS: ALT/SGPT 32 U/L (16-61); AST/SGOT 35 U/L (15-37); Albumin 2.9 g/dL (3.4-5.0); Albumin/Globulin Ratio 0.8 (1.1-1.8); Alkaline Phosphatase 91 U/L (45-117); Anion Gap 9.2 mEq/L (5.0-15.0); BUN Blood Urea Nitrogen 16 mg/dL (7-18); Bicarbonate 25 mEq/L (21-32); Bilirubin Direct < 0.2 mg/dL (0-0.2); Bilirubin Indirect, Calculated 0.4 mg/dL (0.2-0.8); Bilirubin Total 0.6 mg/dL (0.2-1.0); Globulin 3.5 g/dL (2.3-3.5); Glomerular Filtration Rate 90 ml/min (=/>90); Glucose Level 106 mg/dL (74-106); Magnesium 2.1 mg/dL (1.6-2.4); Potassium 4.2 mEq/L (3.5-5.1); Protein, Total 6.4 g/dL (6.4-8.2); Sodium Level 138 mEq/L (136-145)
[2024-10-28 07:35] LABS: Troponin High Sensitivity 506.3 pg/mL (<58.9)
--- NOTE | 2024-10-28 07:57 | EDPHYS ---
Physician Documentation [facility] Name: Federico Nj Age: 79 yrs Sex: Male : 1945 Arrival Date: 10/28/2024 Time: 05:37 Bed 8 Private MD: ED Physician Tay Boston HPI: 10/28 05:50 This 79 yrs old Male presents to ER via Unassigned with complaints of speech sp4 slurring. . 07:53 79-year-old male presents with acute onset of slurring speech at 6 PM yesterday. . sp4 Historical: - Allergies: 05:51 No Known Allergies; br2 - PMHx: 05:51 Hypertensive disorder; Atrial fibrillation; br2 - Immunization history:: Adult Immunizations up to date. - Infectious Disease History:: Denies. - Social history:: Smoking status: Patient denies any tobacco usage or history of. Patient uses alcohol, occasionally. - Family history:: not pertinent. ROS: 07:53 Constitutional: Negative for fever, chills, and weight loss, positive for the slurring sp4 of the speech 07:53 All other systems are negative, Exam: 07:50 Constitutional: This is a well developed, well nourished patient who is awake, alert, sp4 and in no acute distress. Head/Face: Normocephalic, atraumatic. Eyes: Pupils equal round and reactive to light, extra-ocular motions intact. Lids and lashes normal. Conjunctiva and sclera are not injected. Cornea within normal limits. Periorbital areas with no swelling, redness, or edema. ENT: Nares patent. No nasal discharge, no septal abnormalities noted. Tympanic membranes are normal and external auditory canals are clear. Oropharynx with no redness, swelling, or masses, exudates, or evidence of obstruction, uvula midline. Mucous membranes moist. Neck: Trachea midline, no thyromegaly or masses palpated, and no cervical lymphadenopathy. Supple, full range of motion without nuchal rigidity, or vertebral point tenderness. Chest/axilla: Normal chest wall appearance and motion. Nontender with no deformity. No lesions are appreciated. Cardiovascular: Regular rate and rhythm with a normal S1 and S2. No gallops, murmurs, or rubs. Normal PMI, no JVD. No pulse deficits. Respiratory: Lungs have equal breath sounds bilaterally, clear to auscultation and percussion. No rales, rhonchi or wheezes noted. No increased work of breathing, no retractions or nasal flaring. Abdomen/GI: Soft, with normal bowel sounds. No distension or tympany. No guarding or rebound. No evidence of tenderness throughout. Back: No spinal tenderness. No costovertebral tenderness. Skin: Warm, dry with normal turgor. Normal color with no rashes, no lesions, and no evidence of cellulitis. MS/ Extremity: Pulses equal, no cyanosis. Neurovascular intact. Full, normal range of motion. Neuro: Awake and alert, GCS 15, oriented to person, place, time, and situation. Cranial nerves II-XII grossly intact. Motor strength 5/5 in all extremities. Sensory grossly intact. Psych: Awake, alert, with orientation to person, place and time. Behavior, mood, and affect are within normal limits 07:50 ECG was reviewed by the Attending Physician. Vital Signs: 05:43 BP 169 / 84; Pulse 75; Resp 18; Temp 97.8; Pulse Ox 99% on R/A; Weight 101.5 kg; Height br2 5 ft. 2 in. ; Pain 0/10; 06:36 BP 145 / 81; Pulse 60; Resp 15; Pulse Ox 95% on R/A; dd2 05:43 Body Mass Index 40.93 (101.50 kg, 157.48 cm) br2 05:43 Pain Scale: Adult br2 NIH Stroke Scale Scores: 07:30 NIHSS Score: 0 ss 07:50 NIHSS Score: 0 sp4 MDM: 05:52 Medical Screening Exam initiated sp4 07:49 ED course: Date of Procedure: 10/27/2024 Surgeon: MACY KIDD Procedures Performed: sp4 1. Coronary angiogram. 2. Left heart catheterization. 3. Right heart catheterization. 4. PCI of severe mid LAD stenosis, used 3.5 x 32 mm drug-eluting stent, post dilated the proximal segment to 4.0 using 4.0 x 12 NC balloon. Indications: 1. Aortic valve stenosis. 2. Chest pain. Access: 1. Right radial artery 6-N[place], closed with TR band. 2. Right IJ 7-Nigerian, closed with manual pressure. . ED course: STROKE ALERT COMPARISON: March 30, 2024 TECHNIQUE: Contiguous noncontrast axial images of the head were obtained. Sagittal and coronal reformatted images are generated for review. This exam was performed according to our departmental dose-optimization program, which includes automated exposure control, adjustment of the mA and/or kV according to patient size and/or use of iterative reconstruction technique. FINDINGS: BRAIN/VENTRICLES: There is no acute intracranial hemorrhage, mass effect or midline shift. No abnormal extra-axial fluid collections. The noland-white differentiation is maintained without evidence of acute infarct. There is no evidence of hydrocephalus. Nonspecific periventricular and deep white matter hypodensities are likely the result of chronic small vessel ischemic disease. ORBITS: The visualized portions of the orbits demonstrate no acute abnormality. SINUSES: The visualized paranasal sinuses and mastoid air cells demonstrate no acute abnormality. SOFT TISSUE/SKULL: No acute abnormality of the visualized skull. The soft tissues are intact. IMPRESSION: No acute intracranial abnormality.. 07:53 Differential diagnosis: hypertensive crisis, Malignant HTN, CVA, intracerebral sp4 hemorrhage. Data reviewed: vital signs, nurses notes, EMS record, lab test result(s), EKG, radiologic studies, CT scan, plain films. ED course: CLINICAL HISTORY: slurry speech COMPARISON: March 30, 2024 FINDINGS: The lungs are clear. There is no pleural effusion or pneumothorax. The cardiomediastinal silhouette is without acute process. The osseous structures are without acute process. A pacemaker device is in satisfactory position. IMPRESSION: No acute process. RECOMMENDATIONS: Electronically signed by: Yg Franco MD 10/28/2024 06:19 AM Due to temporary technical issues with the PACS/Con[employer] Inbox reporting system, reports are being signed by the in-house radiologist without review as a courtesy to ensure prompt reporting the interpreting radiologist is fully responsible for the content of the report. Transcribed Date/Time: 10/28/2024 6:32 AM. 07:57 Consideration of Admission/Observation Patient was admitted/placed on observation. sp4 Escalation of care including admission/observation considered. Management of patient was discussed with the following: Hospitalist: Admit team . [facility] Pricing Consultant: Carmen FISCHER . 10/28 05:52 Order name: Basic Metabolic Panel sp4 10/28 05:52 Order name: CBC with Diff sp4 10/28 05:52 Order name: Hepatic Function sp4 10/28 05:52 Order name: High Sensitivity Troponin sp4 10/28 05:52 Order name: Magnesium sp4 10/28 05:52 Order name: Protime (+inr) sp4 10/28 05:52 Order name: Ptt, Activated sp4 10/28 08:31 Order name: T4,Total EDMS 10/28 08:31 Order name: Thyroid Stimulating Hormone EDMS 10/28 08:31 Order name: Basic Metabolic Panel EDMS 10/28 08:31 Order name: Basic Metabolic Panel EDMS 10/28 08:31 Order name: Basic Metabolic Panel EDMS 10/28 08:31 Order name: CBC with Automated Diff EDMS 10/28 08:31 Order name: CBC with Automated Diff EDMS 10/28 08:31 Order name: CBC with Automated Diff EDMS 10/28 08:31 Order name: Lipid Profile EDMS 10/28 08:31 Order name: Lipid Profile EDMS 10/28 08:31 Order name: Magnesium EDMS 10/28 08:31 Order name: Magnesium EDMS 10/28 08:31 Order name: Magnesium EDMS 10/28 08:31 Order name: Phosphorus EDMS 10/28 08:31 Order name: Phosphorus EDMS 10/28 08:31 Order name: Phosphorus EDMS 10/28 08:31 Order name: Troponin High Sensitivity EDMS 10/28 08:31 Order name: Troponin High Sensitivity EDMS 10/28 08:31 Order name: Troponin High Sensitivity EDMS 10/28 05:52 Order name: CT Stroke Brain w/o Contrast sp4 10/28 05:52 Order name: Stroke CXR 1 View sp4 10/28 08:30 Order name: Head angio EDMS 10/28 08:30 Order name: Head angio EDMS 10/28 08:30 Order name: Neck Angio EDMS 10/28 08:30 Order name: Neck Angio EDMS 10/28 08:31 Order name: Echo with Doppler EDMS 10/28 12:36 Order name: CT EDMS 10/28 05:52 Order name: EKG; Complete Time: 05:53 sp4 10/28 08:30 Order name: Physical Therapy Consult EDMS 10/28 08:33 Order name: Speech Therapy Consult EDMS 10/28 05:52 Order name: Accucheck; Complete Time: 07:14 sp4 10/28 05:52 Order name: Cardiac monitoring; Complete Time: 06:35 sp4 10/28 05:52 Order name: EKG - Nurse/Tech; Complete Time: 06:35 sp4 10/28 05:52 Order name: IV Saline Lock; Complete Time: 06:12 sp4 10/28 05:52 Order name: Labs collected and sent; Complete Time: 06:35 sp4 10/28 05:52 Order name: NPO; Complete Time: 06:35 sp4 10/28 05:52 Order name: O2 Per Protocol; Complete Time: 06:35 sp4 10/28 05:52 Order name: O2 Sat Monitoring; Complete Time: 06:35 sp4 10/28 05:52 Order name: Stroke Swallow Screen; Complete Time: 13:37 sp4 EC:17 Rate is 61 beats/min. Rhythm is regular, Paced. QRS [place] is Normal. Clinical sp4 impression: No evidence of ischemia. Interpreted by me. Reviewed by me. Administered Medications: No medications were administered Disposition Summary: 10/28/24 07:56 Hospitalization Ordered Notes: Hospitalization Status: Inpatient Admission sp4 Provider: Joshua Mitchell spSantiago Condition: Stable sp4 Problem: new sp4 Symptoms: have improved sp4 Bed/Room Type: Standard sp4 Location: Telemetry/MedSurg (Inpatient)(10/28/24 12:17) Room Assignment: [facility](10/28/24 12:17) Diagnosis - Transient cerebral ischemic attack, unspecified sp4 Forms: - Medication Reconciliation Form sp4 - SBAR form sp4 - Leadership Thank You Letter sp4 NIH Stroke Scale - NIH Stroke Score Date: 10/28/2024 Time: 07:30 Total Score = 0 10. Dysarthria (speech clarity - read or repeat words) - 0(Normal) 11. Extinction and Inattention (visual/tactile/auditory/spatial/personal) - 0(No abnormality) 1a. Level of Consciousness (LOC) - 0(Alert) 1b. Level of Consciousness (LOC) (Month \T\ Age) - 0(Both) 1c. LOC Commands (Open \T\ Closes Eyes/Oven Equipment Repairer) - 0(Both) 2. Best Gaze (Lateral Gaze Paresis) - 0(Normal) 3. Visual Field Loss - 0(No visual loss) 4. Facial Palsy - 0(Normal) 5a. Left Arm: Motor (10-second hold) - 0(No drift) 5b. Right Arm: Motor (10-second hold) - 0(No drift) 6a. Left Leg: Motor (5-second hold - always test supine) - 0(No drift) 6b. Right Leg: Motor (5-second hold - always test supine) - 0(No drift) 7. Limb Ataxia (finger/nose \T\ heel/duncan - test with eyes open) - 0(Absent) 8. Sensory Loss (pinprick arms/legs/face) - 0(Normal) 9. Best Language: Aphasia (description/naming/reading) - 0(No aphasia) Initials: NIH Stroke Scale - NIH Stroke Score Date: 10/28/2024 Time: 07:50 Total Score = 0 10. Dysarthria (speech clarity - read or repeat words) - 0(Normal) 11. Extinction and Inattention (visual/tactile/auditory/spatial/personal) - 0(No abnormality) 1a. Level of Consciousness (LOC) - 0(Alert) 1b. Level of Consciousness (LOC) (Month \T\ Age) - 0(Both) 1c. LOC Commands (Open \T\ Closes Eyes/Oven Equipment Repairer) - 0(Both) 2. Best Gaze (Lateral Gaze Paresis) - 0(Normal) 3. Visual Field Loss - 0(No visual loss) 4. Facial Palsy - 0(Normal) 5a. Left Arm: Motor (10-second hold) - 0(No drift) 5b. Right Arm: Motor (10-second hold) - 0(No drift) 6a. Left Leg: Motor (5-second hold - always test supine) - 0(No drift) 6b. Right Leg: Motor (5-second hold - always test supine) - 0(No drift) 7. Limb Ataxia (finger/nose \T\ heel/duncan - test with eyes open) - 0(Absent) 8. Sensory Loss (pinprick arms/legs/face) - 0(Normal) 9. Best Language: Aphasia (description/naming/reading) - 0(No aphasia) Initials: sp4 Signatures: Dispatcher [employer] EDSuzie Irizarry RN RN ss Tay Boston MD MD sp4 Karen Weeks RN RN br2 Corrections: (The following items were deleted from the chart) 05:51 05:51 Head Brain Wo Cont+CT.RAD.BRZ ordered. EDMS EDMS 07:56 Telemetry/MedSurg (Inpatient) sp4 ss : 07:56 sp4 ss 12: 11:18 [facility] ER HOLD ss ss 11:18 ERHOLD- ss ss
--- NOTE | 2024-10-28 07:57 | ER ---
Nurse's Notes [facility] Areli Name: Federico Nj Age: 79 yrs Sex: Male : 1945 Arrival Date: 10/28/2024 Time: 05:37 Bed 8 Private MD: Diagnosis: Transient cerebral ischemic attack, unspecified Presentation: 10/28 05:43 Chief complaint: Patient states: S/P HEART CATH YESTERDAY AT 1PM. PT STATES AT APPROX br2 6PM PRIOR TO DISCHARGE PT FELT LIKE HE HAD SLURRED SPEECH, PT DIDN'T NOTIFY MEDICAL STAFF. AT 430AM THIS MORNING PT FELL HITTING HEAD AND NOTICED RIGHT FACIAL DROPPING. DENIES LOC. PT HAS BRUISE TO RIGHT UPPER EAR WITH SMALL SUPERFICIAL LACERATION BEHIND RIGHT EAR. Coronavirus screen: Client denies travel out of the [place] in the last 14 days. Ebola Screen: Patient denies exposure to infectious person. Initial Sepsis Screen: Does the patient meet any 2 criteria? No. Patient's initial sepsis screen is negative. Does the patient have a suspected source of infection? No. Patient's initial sepsis screen is negative. Risk Assessment: Do you want to hurt yourself or someone else? Patient reports no desire to harm self or others. Onset of symptoms was October 27, 2024 at 18:00. 05:43 Method Of Arrival: EMS: [facility] br2 05:43 Acuity: CATHY 3 br2 Triage Assessment: 05:43 EENT: No signs and/or symptoms were reported regarding the EENT system. Neuro: De La Cruz br2 Agitation-Sedation Scale (RASS): 0 - Alert and Calm Level of Consciousness is awake, alert, Oriented to person, place, time, situation, Correctional Officer are equal bilaterally Moves all extremities. Speech is normal, Facial droop on right, Pupils are PERRLA, Intact Reports. Respiratory: Airway is patent Respiratory effort is even, unlabored, Respiratory pattern is regular, symmetrical. GI: No signs and/or symptoms were reported involving the gastrointestinal system. : No signs and/or symptoms were reported regarding the genitourinary system. Derm: Skin is intact, Skin is RIGHT UPPER EAR BRUISE. 05:51 General: Appears in no apparent distress. comfortable, Behavior is calm, cooperative. br2 Pain: Denies pain. Historical: - Allergies: 05:51 No Known Allergies; br2 - PMHx: 05:51 Hypertensive disorder; Atrial fibrillation; br2 - Immunization history:: Adult Immunizations up to date. - Infectious Disease History:: Denies. - Social history:: Smoking status: Patient denies any tobacco usage or history of. Patient uses alcohol, occasionally. - Family history:: not pertinent. Screenin:41 [facility] ED Fall Risk Assessment (Adult) History of falling in the last 3 months, dd2 including since admission Yes- single mechanical fall (1 pt) Confusion or Disorientation No (0 pts) Intoxicated or Sedated No (0 pts) Impaired Gait No (0 pts) Mobility Assist Device Used No (0 pt) Altered Elimination No (0 pt) Score/Fall Risk Level 0 - 2 = Low Risk Oriented to surroundings, Maintained a safe environment, Educated pt \T\ family on fall prevention, incl call for assistance when getting out of bed, Assessed \T\ reinforced patient's understanding of fall precautions, Hourly rounding (assess needs \T\ fall precautionary measures) done. Abuse screen: Denies threats or abuse. Denies injuries from another. Nutritional screening: No deficits noted. Tuberculosis screening: No symptoms or risk factors identified. 07:30 [facility]ormick Swallow Protocol Exclusion Criteria: Brief Cognitive Screen What is your name? ss Normal, Where are you right now? Normal, What year is it? Normal. Oral Mechanism Examination Facial Symmetry: Normal, Motion: Normal, Lip Closure: Normal, 3 oz Water Swallow Challenge: Pt able to drink all water without stopping, coughing, choking or throat clearing: Yes Result: PASS. Assessment: 13:31 Reassessment: Received report from GRISELDA Silverio. General: Appears in no apparent distress. ss comfortable. Neuro: Level of Consciousness is awake, alert, obeys commands, Oriented to person, place, time, situation, Speech is normal, normal upon assessment. Pt and family reports that speech still seems a little heavier/ slower. Respiratory: Airway is patent Respiratory effort is even, unlabored, Respiratory pattern is regular, symmetrical. EENT: Oral mucosa is moist. Derm: Skin is intact, is healthy with good turgor, Skin is pink, warm \T\ dry. normal. Vital Signs: 05:43 BP 169 / 84; Pulse 75; Resp 18; Temp 97.8; Pulse Ox 99% on R/A; Weight 101.5 kg; Height br2 5 ft. 2 in. ; Pain 0/10; 06:36 BP 145 / 81; Pulse 60; Resp 15; Pulse Ox 95% on R/A; dd2 05:43 Body Mass Index 40.93 (101.50 kg, 157.48 cm) br2 05:43 Pain Scale: Adult br2 NIH Stroke Scale Scores: 07:30 NIHSS Score: 0 ss 07:50 NIHSS Score: 0 sp4 ED Course: 05:39 Patient arrived in ED. rv1 05:49 Tay Boston MD is Attending Physician. sp4 05:51 Triage completed. br2 05:51 Arm band placed on. br2 05:51 Maintain EMS IV. Dressing intact. Site clean \T\ dry. Gauge \T\ site: 20G LEFT HAND . br 2 Flushed with 10 mL NS. 05:58 CT Stroke Brain w/o Contrast In Process Unspecified. EDMS 06:10 Stroke CXR 1 View In Process Unspecified. EDMS 06:12 Inserted saline lock: 22 gauge in right antecubital area, using aseptic technique. br2 Blood collected. Flushed with 10 mL NS. 06:31 EKG done, by ED staff, reviewed by Tay Boston MD. oe 06:41 Patient has correct armband on for positive identification. Bed in low position. Call dd2 light in reach. Side rails up X2. Client placed on continuous cardiac and pulse oximetry monitoring. NIBP monitoring applied. equipment monitor phototypesetting on. Door closed. Noise minimized. Pillow given. Verbal reassurance given. 06:41 No provider procedures requiring assistance completed. Initial lab(s) drawn, by ED dd2 staff, sent to lab. Patient maintains SpO2 saturation greater than 95% on room air. 07:14 Opal Contreras, GRISELDA is Primary Nurse. ap3 07:55 Joshua Mitchell is Hospitalizing Provider. sp4 09:00 Patient admitted, IV remains in place. ss Administered Medications: No medications were administered Medication: 06:41 VIS not applicable for this client. dd2 Outcome: 07:56 Decision to Hospitalize by Provider. sp4 09:00 Admitted to ER Hold. Please see [facility] for further documentation. ss 09:00 Condition: good 09:00 Instructed on the need for admit, Demonstrated understanding of instructions, 13:55 Patient left the ED. NIH Stroke Scale - NIH Stroke Score Date: 10/28/2024 Time: 07:30 Total Score = 0 10. Dysarthria (speech clarity - read or repeat words) - 0(Normal) 11. Extinction and Inattention (visual/tactile/auditory/spatial/personal) - 0(No abnormality) 1a. Level of Consciousness (LOC) - 0(Alert) 1b. Level of Consciousness (LOC) (Month \T\ Age) - 0(Both) 1c. LOC Commands (Open \T\ Closes Eyes/Glue Wheel Operator) - 0(Both) 2. Best Gaze (Lateral Gaze Paresis) - 0(Normal) 3. Visual Field Loss - 0(No visual loss) 4. Facial Palsy - 0(Normal) 5a. Left Arm: Motor (10-second hold) - 0(No drift) 5b. Right Arm: Motor (10-second hold) - 0(No drift) 6a. Left Leg: Motor (5-second hold - always test supine) - 0(No drift) 6b. Right Leg: Motor (5-second hold - always test supine) - 0(No drift) 7. Limb Ataxia (finger/nose \T\ heel/duncan - test with eyes open) - 0(Absent) 8. Sensory Loss (pinprick arms/legs/face) - 0(Normal) 9. Best Language: Aphasia (description/naming/reading) - 0(No aphasia) Initials: NIH Stroke Scale - NIH Stroke Score Date: 10/28/2024 Time: 07:50 Total Score = 0 10. Dysarthria (speech clarity - read or repeat words) - 0(Normal) 11. Extinction and Inattention (visual/tactile/auditory/spatial/personal) - 0(No abnormality) 1a. Level of Consciousness (LOC) - 0(Alert) 1b. Level of Consciousness (LOC) (Month \T\ Age) - 0(Both) 1c. LOC Commands (Open \T\ Closes Eyes/Glue Wheel Operator) - 0(Both) 2. Best Gaze (Lateral Gaze Paresis) - 0(Normal) 3. Visual Field Loss - 0(No visual loss) 4. Facial Palsy - 0(Normal) 5a. Left Arm: Motor (10-second hold) - 0(No drift) 5b. Right Arm: Motor (10-second hold) - 0(No drift) 6a. Left Leg: Motor (5-second hold - always test supine) - 0(No drift) 6b. Right Leg: Motor (5-second hold - always test supine) - 0(No drift) 7. Limb Ataxia (finger/nose \T\ heel/duncan - test with eyes open) - 0(Absent) 8. Sensory Loss (pinprick arms/legs/face) - 0(Normal) 9. Best Language: Aphasia (description/naming/reading) - 0(No aphasia) Initials: sp4 Signatures: Dispatcher [employer] EDSuzie Irizarry, RN RN ss Mihai Gmienez Amanda RN RN ap3 Giulia Martini rv1 Tay Boston MD MD sp4 Karen Weeks RN RN br2 VANIA FITCH RN RN dd2
[2024-10-28] MEDS ORDERED: ACETAMINOPHEN 500 MG TAB PO PRN (08:20)
--- NOTE | 2024-10-28 08:43 | P.HP ---
Certification for Inpatient Patient admitted to: Observation With expected LOS: <2 Midnights Practitioner: I am a practitioner with admitting privileges, knowledge of patient current condition, hospital course, and medical plan of care. Services: Services provided to patient in accordance with Admission requirements found in Title 42 Section 412.3 of the Code of Federal Regulations Patient History Date of Service: 10/28/24 Reason for admission: CVA r/o History of Present Illness: Federico Nj is a 79 year old male with Pmhx CAD (PCI 10/27/24), HTN, Afib who presents to the ED with slurred speech that began 10/27 at 6 pm after the PCI to LAD. He presented to the ED around 5 am 10/28, outside the TNK window. CT head negative for bleed, on evaluation slurred speech is present with no other apparent deficits. CT head reports "No acute intracranial abnormality." Repeat CT head reports "No acute intracranial abnormality. No significant change from prior" Chest xray reports "The lungs are clear. There is no pleural effusion or pneumothorax. The cardiomediastinal silhouette is without acute process. The osseous structures are without acute process. A pacemaker device is in satisfactory position." Federico will be admitted to hospitalist service for further evaluation of CVA r/o, Dr. Morales and Dr. Escalona consulted. Allergies No Known Allergies Allergy (Verified 10/24/24 13:20) Home Medications: Atorvastatin Calcium [Lipitor] 40 mg PO BEDTIME 06/22/21 Candesartan Cilexetil [Atacand] 16 mg PO BEDTIME 06/22/21 Rivaroxaban [Xarelto] 1 tab PO BEDTIME 06/22/21 Aspirin [Aspirin EC 81 MG] 81 mg PO DAILY 30 Days #30 tablet. 06/23/21 Cholecalciferol (Vitamin D3) [Vitamin D3] 1,000 unit PO DAILY 10/28/24 Fluticasone [Flonase 50MCG Nasal Slater*] 50 mcg ANNIE DAILY 10/28/24 [place]-3/Dha/Epa/Fish Oil [Fish Oil 1,000 mg Softgel] 3,000 mg PO DAILY 10/28/24 Ticagrelor [Brilinta] 90 mg PO BID 10/28/24 - Past Medical/Surgical History Diabetic: No -: HTN -: Hyperlipidemia -: HTN -: Afib -: pacemaker -: cardioversion Oct -: appy -: turbex - Family History Mother -: Cancer - Social History Alcohol use: Yes CD- Drugs: No Caffeine use: Yes Review of Systems Other: per HPI Physical Examination - Physical Exam General: Alert, In no apparent distress, Oriented x3 HEENT: Atraumatic, Normocephalic Neck: Supple, 2+ carotid pulse no bruit Respiratory: Clear to auscultation bilaterally, Normal air movement Cardiovascular: Normal pulses, Regular rate/rhythm, Normal S1 S2 Capillary refill: <2 Seconds Gastrointestinal: Normal bowel sounds, Soft and benign Musculoskeletal: No clubbing Integumentary: No rashes Neurological: Normal tone, Abnormal speech (dysarthria) - Studies Laboratory Data (last 24 hrs) 10/28/24 10/28/24 10/28/24 06:58 06:11 06:11 WBC 7.50 Hgb 14.1 Hct 42.6 Plt Count 237 PT 12.5 INR 1.10 APTT 33.5 Sodium 138 Potassium 4.2 BUN 16 Creatinine 0.83 Glucose 106 Magnesium 2.1 Total Bilirubin 0.6 AST 35 ALT 32 Alkaline Phosphatase 91 Assessment and Plan - Plan Assessment and plan CVA vs TIA r/o CAD s/p PCI to LAD NSTEMI 2/2 recent PCI Afib - Consulted Neurology - recommendations appreciated - Admit under observation status - No neurologic deficits on my exam - NIHSS = 1, dysarthria - Allow permissive hypertension for tonight - q4hr neurochecks - Pacemaker present- no MR brain possible -CTA head and neck in the AM- s/p contrast dye on 10/27 - Ordered TTE - PT/OT evaluation requested - Ordered risk profile: lipid panel, TSH - Started aspirin, folic acid, atorvastatin -continue home medications as appropriate HTN -continue home medications DVT ppx xarelto Full code LOS 24 hour OBS Discharge Plan: Home Plan to discharge in: 24 Hours - Advance Directives Does patient have a Living Will: No Does patient have a Durable POA for Healthcare: Yes
[2024-10-28] MEDS ORDERED: CLOPIDOGREL 75 MG TABLET PO SCH (09:00)
[2024-10-28] MEDS ORDERED: ASPIRIN EC 81 MG TAB PO SCH ×2 (09:00→21:00)
[2024-10-28] MEDS ORDERED: ENOXAPARIN 100 MG/ML SYR SQ SCH ×2 (09:00→21:00)
[2024-10-28 09:08] LABS: T4,Total 6.9 ug/dL (4.5-12.1); Thyroid Stimulating Hormone 2.49 uIU/mL (0.358-3.740)
--- NOTE | 2024-10-28 12:35 | RAD REPORT ---
EXAMINATION: Head Brain Wo Cont CLINICAL INDICATION: Male, 79 years old.CVA r/o TECHNIQUE: Axial CT images from the skull base to the vertex without intravenous contrast. Coronal an d sagittal reformatted images were created from the data set. One or more of the following dose reduction techniques were used: Automated exposure control, adjustment of the mA and/or kV according to patient size, and/or iterative reconstruction. Unless otherwise specified, incidental findings do not require dedicated imaging follow-up. [id number]. COMPARISON: Earlier in the day FINDINGS: INTRACRANIAL: No acute intracranial hemorrhage. No hydrocephalus. No mass effect or midline shift. Mi ld chronic small vessel ischemic changes. VASCULATURE: No visualized abnormalities in the arteries or dural venous sinuses. SCALP/SKULL: No calvarial fracture identified. No acute soft tissue abnormality. SINUSES: The visualized paranasal sinuses are mostly clear. No significant mastoid fluid. IMPRESSION: No acute intracranial abnormality. No significant change from prior.
[2024-10-28 12:52] VITALS: BMI 40.9
[2024-10-28] MEDS: TICAGRELOR 90 MG TABLET PO SCH (13:01)
[2024-10-28] MEDS ORDERED: NA CHLORIDE 0.9% 1,000 ML ONE (13:12)
[2024-10-28] MEDS ORDERED: FOLIC ACID 1 MG TABLET ONE (13:12)
[2024-10-28] MEDS: ASPIRIN 81 MG CHEWABLE TABLET PO SCH (13:22)
[2024-10-28] MEDS: NA CHLORIDE 0.9% 1,000 ML IV SCH (13:23)
[2024-10-28] MEDS: FOLIC ACID 1 MG TABLET PO SCH (13:23)
[2024-10-28 14:04] VITALS: O2SAT 95
[2024-10-28] MEDS: RIVAROXABAN 20 MG TABLET PO SCH (17:04)
--- NOTE | 2024-10-28 19:18 | CON ---
Date of Consultation: 10/28/2024 Reason For Consultation: Stroke. He is status post PCI of the LAD yesterday. History Of Present Illness: This is a 79-year-old male, history of postop PCI of the LAD yesterday. He did well and was sent home on Brilinta and aspirin and he has history of atrial fibrillation, sup posed to be started on Xarelto, but he has not started yet due to the fact that he had a coronary ang iogram and PCI of the LAD yesterday, so at home family was saying that he started having slurred spee ch and slight altered mental status. He was sent to the emergency room where he was diagnosed with mica sarmiento . At the time of the interview, the patient was completely lucid and he does not hav e any complaints. No slurred speech, no weakness. Past Medical History: Coronary artery disease, hypertension, atrial fibrillation, aortic valve steno sis that is moderate. Medications: Refer reconciliation sheet for detailed list. Allergies: NO KNOWN DRUG ALLERGIES. Family History: No premature coronary artery disease or cancer. Social History: Does not smoke or drink. Does not use any drugs. Review of Systems: All systems were reviewed, they were negative except as mentioned in the HPI. Physical Examination: Vital Signs: Reviewed. Head And Neck: Pupils are equal, reactive to light. Intact eye movements. No JVD. No cervical lym phadenopathy. Neck supple. Thyroid is not enlarged. Lungs: Clear to auscultation bilaterally. No rhonchi, wheezing, or crackles. No accessory muscle u se. Heart: Regular rate and rhythm. No extra sounds. Abdomen: Soft, nontender. Bowel sounds positive. No organomegaly. No masses or hernia. No rigidi ty or rebound. Extremities: No edema, clubbing, cyanosis. Intact pulses. Skin: No rash. Neurologic: Alert, awake, and oriented x3. No acute focal deficits appreciated. The left side is p aralyzed. Investigations: Troponin was at 500 range and dropping to [address] scan of the brain, no acute abnormalities. Assessment/recommendations: 1. Transient ischemic attack versus mini-stroke. This is likely atrial fibrillation induced as the p atient was not on anticoagulant. I recommend to start Xarelto 20 mg daily to Clear with Neurology fi rst and continue aspirin and Brilinta. 2. Coronary artery disease, status post PCI of the LAD yesterday. Continue Brilinta and aspirin. 3. Dyslipidemia. Recommend Lipitor 40 mg at bedtime. 4. Aortic valve stenosis. It is moderate in severity. This will be monitored. Thank you for the consult. /RAKAN Voice ID: [id number] Report ID: [id number]
[2024-10-28] MEDS: ATORVASTATIN 40 MG TAB PO SCH (20:58)
[2024-10-29 06:19] LABS: Absolute Eosinophils 0.2 K/uL (0-0.5); Absolute Lymphocytes (CBC) 2.5 K/uL (0.7-4.9); Absolute Monocytes 0.8 K/uL (0.1-1.3); Absolute Neutrophil 3.8 K/uL (1.8-8.0); Basophils % 0.7 % (0-1.3); Eosinophils % 2.5 % (0-4.4); Hematocrit 40.8 % (39.6-49.0); Lymphocytes % 34.7 % (15.3-44.8); MCH 31.2 pg (27.0-35.0); MCHC 34.2 g/dL (32.0-36.0); MCV 91.3 fL (80-100); MPV 8.1 fL (7.6-11.3); Monocytes % 10.5 % (3.3-12.3); Neutrophils % 51.6 % (41.7-73.7); Nucleated Red Blood Cells % 0.1 % (0-0); Platelets 223 thou/uL (152-406); RBC Red Blood Cell Count 4.48 M/uL (4.33-5.43); Red Cell Distribution Width 13.4 % (12.1-15.2)
[2024-10-29 06:55] LABS: Anion Gap 8.9 mEq/L (5.0-15.0); Magnesium 2.2 mg/dL (1.6-2.4); Phosphorus 3.4 mg/dL (2.5-4.9); Potassium 3.9 mEq/L (3.5-5.1)
[2024-10-29] MEDS: VITAMIN D 1000 UNIT TAB PO SCH (09:00)
[2024-10-29] MEDS ORDERED: HOME MED 1 EA UNK (Cholecalciferol (Vitamin D3) [Vitamin D3] 1,000 UNIT Capsule) PO SCH (09:00)
--- NOTE | 2024-10-29 10:57 | RAD REPORT ---
EXAM: CT brain without contrast HISTORY: TIA COMPARISON: October 28, 2024 TECHNIQUE: Multiple contiguous axial images were obtained and a CT of the brain without contrast.. Sagittal and coronal reconstruction performed. Automated exposure control, adjustment of the mA and/or kV according to patient size, and/or iterative reconstruction. Unless otherwise specified, incidental f indings do not require dedicated imaging follow-up FINDINGS: An intracranial bleed is not seen Ventricles are normal caliber No extra-axial fluid collection noted Mild low-density within periventricular, and subcortical white matter probably ischemic changes secon vivian to small vessel disease. No fluid within the visualized sinuses or mastoids noted. IMPRESSION: No acute intracranial abnormality noted. If the patient continues to have symptoms to suggest an acute intracranial abnormality then MRI of th e brain would be recommended.
--- NOTE | 2024-10-29 11:06 | RAD REPORT ---
EXAMINATION: CTA HEAD CLINICAL INDICATION: TIA TECHNIQUE: Axial CT images were obtained through the head after 100 cc Isovue-370 intravenous contras t utilizing angiographic protocol with 3D post-processing (maximum intensity projection images, volume rendered images and/or shaded surface rendered images). One or more of the following dose red uction techniques were used: Automated exposure control, adjustment of the mA and/or kV according to patient size, and/or iterative reconstruction. Unless otherwise specified, incidental findings do not require dedicated imaging follow-up. COMPARISON: None FINDINGS: Mild to moderate calcified plaque distal left internal carotid artery. Mild calcified plaque distal right internal carotid artery. Basilar, anterior cerebral, middle cerebral and posterior cerebral arteries do not demonstrate a sign ificant stenosis origin posterior cerebral arteries An aneurysm not noted. No large vessel occlusion IMPRESSION: No acute vascular abnormality displayed
--- NOTE | 2024-10-29 11:07 | RAD REPORT ---
EXAMINATION: Neck Angio CLINICAL INDICATION: TIA TECHNIQUE: Axial CT images were obtained from the aortic arch to the skull base after intravenous adm inistration of 100 cc Isovue-370 utilizing angiographic protocol. Multiplanar reformats, as well as 3D post-processing (maximum intensity projection images, volume rendered images and/or shaded surface rendered images) were generated and reviewed. One or more of the following dose reduction techniques were used: Automated exposure control, adjustment of the mA and/or kV according to patient size, and/or iterative reconstruction. Unless otherwise specified, incidental findings do not require dedicated imaging follow-up. COMPARISON: No prior exam. FINDINGS: The visualized aortic arch and great vessels do not demonstrate a significant abnormality Mild plaque within common carotid, internal carotid and external carotid arteries bilaterally. No significant stenosis noted. A dissection is not seen. Methods for NASCET criteria: Mild stenosis, 0% to 49%; Moderate stenosis 50% to 69%; Severe stenosis, 70% to 99% IMPRESSION: No acute vascular abnormality displayed
[2024-10-29] MEDS: FLUTICASONE 50MCG NASAL SPRAY NAS SCH (11:19)
[2024-10-29] MEDS: POTASSIUM CL SA 10 MEQ TAB PO ONE (14:10)
[2024-10-29] MEDS ORDERED: METHYLPREDNISOLONE 40 MG INJ IV SCH (17:00)
--- NOTE | 2024-10-29 18:04 | P.PN ---
Subjective Date of Service: 10/29/24 Chief Complaint: CVA r/o Family report patient had another episode of slurred speech last night. Slurred speech has resolved since then, however patient still has right facial droop. He denies any weakness in his limbs. He denies any headache. He denies any problems swallowing. Physical Examination - Vital Signs Temperature: 97.3 F Blood Pressure: 144/73 Pulse: 60 Respirations: 15 Pulse Ox (%): 97 Assessment And Plan - Plan Physical examination General: Alert and oriented x3, NAD, HEENT: Conjunctiva not pale, anicteric sclera Neck: Supple, no elevated JVD Heart: Heart sounds 1 and 2 normal, regular rhythm, normal rate, no pedal edema Lungs: Clear to auscultation bilaterally, adequate breath sounds bilaterally, no rhonchi or crackles. Abdomen: Soft, nondistended, nontender, normal bowel sounds. Extremities: No tenderness, no deformity Skin: Normal skin turgor, no rash, no nodules or ulcers. Neuro: Right facial droop. Normal speech. No limp weakness, motor in all extremities are 5/5. Psychiatry: Normal mood, no agitation. Assessment and plan Acute CVA with right facial weakness CAD s/p PCI to LAD NSTEMI 2/2 recent PCI Chronic Afib Case discussed with neurology Dr. Morales. Patient is on anticoagulation and DAPT. Status post cardiac cath prior to admit. Head CT x 2 negative, no acute bleed. CTA head and neck: No significant vascular occlusion to warrant intervention. Not able to perform MRI in this hospital given the presence of pacemaker. Symptoms suggest acute CVA given the evolution of symptoms. Patient and family are okay if MRI cannot be performed for radiographic confirmation of acute CVA. Continue aspirin, Brilinta, Xarelto High-dose Lipitor Add Folic acid Neurochecks. Patient evaluated by PT and he is able to ambulate without assistance. Patient was evaluated by speech. Continue telemetry Permissive hypertension. LDL is at target. Continue omega-3 fatty acid for hypertriglyceridemia Mobilization as tolerated. HTN Holding antihypertensives for permissive hypertension. Monitor BP. DVT prophylaxis: xarelto Advanced directive: full code
[2024-10-29] MEDS ORDERED: IPRATROPIUM BROM 0.5MG/2.5ML NEB SCH (19:00)
[2024-10-29] MEDS ORDERED: ALBUTEROL 2.5 MG/3 ML NEB SOL NEB SCH (19:00)
[2024-10-30 06:17] LABS: Absolute Eosinophils 0.2 K/uL (0-0.5); Absolute Monocytes 0.8 K/uL (0.1-1.3); Absolute Neutrophil 4.6 K/uL (1.8-8.0); Basophils % 0.6 % (0-1.3); Eosinophils % 2.3 % (0-4.4); Hematocrit 37.9 % (39.6-49.0); Lymphocytes % 26.8 % (15.3-44.8); MCH 31.2 pg (27.0-35.0); MCHC 34.3 g/dL (32.0-36.0); MCV 90.9 fL (80-100); MPV 8.1 fL (7.6-11.3); Monocytes % 10.4 % (3.3-12.3); Neutrophils % 59.9 % (41.7-73.7); Platelets 224 thou/uL (152-406); RBC Red Blood Cell Count 4.17 M/uL (4.33-5.43); Red Cell Distribution Width 13.3 % (12.1-15.2)
[2024-10-30 06:24] LABS: Anion Gap 8.7 mEq/L (5.0-15.0); Magnesium 2.2 mg/dL (1.6-2.4); Phosphorus 3.1 mg/dL (2.5-4.9); Potassium 3.7 mEq/L (3.5-5.1)
[2024-10-30] MEDS: POTASSIUM CL SA 10 MEQ TAB PO ONE (09:56)
[2024-10-30] MEDS: DOCOSAHEXANOIC AC/EPA 1000 MG PO SCH (09:57)
[2024-10-30 13:15] VITALS: TEMP 97.7
--- NOTE | 2024-10-30 13:24 | P.DS ---
Admission Date: 10/29/24 Discharge Date: 10/30/24 Disposition: ROUTINE DISCHARGE Discharge Condition: FAIR Reason for Admission: CVA r/o Brief History of Present Illness: 79 year old male with gentleman with a past medical history of CAD, with a PCI with stent placement on 10/27/24, HTN, Afib who presents to the ED with slurred speech that began on 10/27 at 6 pm after the PCI to LAD. He presented to the ED around 5 am 10/28, outside the TNK window. CT head negative for bleed, on evaluation patient had slurred speech with no other apparent deficits. CT head reports "No acute intracranial abnormality." Repeat CT head reports "No acute intracranial abnormality. No significant change from prior" Chest xray reports "The lungs are clear. There is no pleural effusion or pneumothorax. The cardiomediastinal silhouette is without acute process. The osseous structures are without acute process. A pacemaker device is in satisfactory position." Stroke protocol initiated, neurology Dr. Morales contacted, patient was hospitalized for stroke workup. Hospital Course: Patient admitted to the medical floor and the following medical problems addressed: Acute CVA with right facial weakness CAD s/p PCI to LAD NSTEMI 2/2 recent PCI Chronic Afib Case discussed with neurology Dr. Morales. Patient is on anticoagulation and DAPT. Status post cardiac cath prior to admit. Head CT x 2 negative, no acute bleed. CTA head and neck: No significant vascular occlusion to warrant intervention. We went not able to perform MRI in this hospital given that patient has a pacemaker. Patient's symptoms suggest acute CVA given the evolution of symptoms(resolution of the dysarthria and appearance of right facial droop). Patient has been on aspirin, Brilinta, Xarelto which were continued. Lipid profile checked showed LDL within target and moderate elevated triglyceride Folic acid added. He is on omega-3 fatty acid for hypertriglyceridemia which was continued. Neurochecks. Patient evaluated by PT and he is able to ambulate without assistance. Patient was evaluated by speech, dysarthria resolved, and no problem with swallowing. Permissive hypertension done. Patient neurologic symptoms have stabilized. Case discussed with neurology Dr. Morales and cardiology Dr. Escalona and patient deemed stable for discharge. HTN Holding antihypertensives for permissive hypertension. Vital Signs/Physical Exam: Temp Pulse Resp BP Pulse Ox 97.7 F 60 16 160/79 H 98 10/30/24 12:00 10/30/24 12:00 10/30/24 12:00 10/30/24 12:00 10/30/24 12:00 General: Alert, In no apparent distress, Oriented x3 HEENT: Mucous membr. moist/pink Neck: JVD not distended Respiratory: Clear to auscultation bilaterally, Normal air movement Cardiovascular: No edema, Normal S1 S2, Irregular heart rate/rhythm Gastrointestinal: Normal bowel sounds, Soft and benign, Non-distended, No tenderness Musculoskeletal: No swelling Integumentary: No rashes, No cyanosis Neurological: Normal speech, Normal strength at 5/5 x4 extr, Other (Right facial weakness) Laboratory Data at Discharge: WBC 7.60 thou/uL (4.3-10.9) 10/30/24 05:27 Hgb 13.0 g/dL (13.6-17.9) L 10/30/24 05:27 Hct 37.9 % (39.6-49.0) L 10/30/24 05:27 Plt Count 224 thou/uL (152-406) 10/30/24 05:27 PT 12.5 SECONDS (10-13.0) 10/28/24 06:11 INR 1.10 10/28/24 06:11 APTT 33.5 SECONDS (27.2-37.4) 10/28/24 06:11 Sodium 141 mEq/L (136-145) 10/30/24 05:27 Potassium 3.7 mEq/L (3.5-5.1) 10/30/24 05:27 BUN 13 mg/dL (7-18) 10/30/24 05:27 Creatinine 0.79 mg/dL (0.70-1.30) 10/30/24 05:27 Glucose 102 mg/dL (74-106) 10/30/24 05:27 Phosphorus 3.1 mg/dL (2.5-4.9) 10/30/24 05:27 Magnesium 2.2 mg/dL (1.6-2.4) 10/30/24 05:27 Total Bilirubin 0.6 mg/dL (0.2-1.0) 10/28/24 06:58 AST 35 U/L (15-37) 10/28/24 06:58 ALT 32 U/L (16-61) 10/28/24 06:58 Alkaline Phosphatase 91 U/L (45-117) 10/28/24 06:58 Triglycerides 246 mg/dL (<150) H 10/29/24 05:30 Cholesterol 139 mg/dL (<200) 10/29/24 05:30 HDL Cholesterol 45 mg/dL (40-60) 10/29/24 05:30 Cholesterol/HDL Ratio 3.09 10/29/24 05:30 Home Medications: Atorvastatin Calcium [Lipitor] 40 mg PO BEDTIME 06/22/21 Candesartan Cilexetil [Atacand] 16 mg PO BEDTIME 06/22/21 Rivaroxaban [Xarelto] 1 tab PO BEDTIME 06/22/21 Aspirin [Aspirin EC 81 MG] 81 mg PO DAILY 30 Days #30 tablet. 06/23/21 Cholecalciferol (Vitamin D3) [Vitamin D3] 1,000 unit PO DAILY 10/28/24 Fluticasone [Flonase 50MCG Nasal [place]*] 50 mcg ANNIE DAILY 10/28/24 [place]-3/Dha/Epa/Fish Oil [Fish Oil 1,000 mg Softgel] 3,000 mg PO DAILY 10/28/24 Ticagrelor [Brilinta*] 90 mg PO BID 10/28/24 Folic Acid 1 mg PO DAILY #30 tab 10/30/24 New Medications: Folic Acid 1 mg PO DAILY #30 tab Physician Discharge Instructions: Fall precautions-patient uses a walker to ambulate to avoid falls given that you are taking multiple blood thinners. Moderate hypertension is permitted for the next 1 week. Please do not take your antihypertensives if you are systolic blood pressure is up to 150 for the next 1 week, after which your target systolic blood pressure will be 120. Please measure your blood pressure every day and take your antihypertensives if your systolic blood pressure is greater than 160. Diet: AHA Activity: Fall precautions Followup: Joshua Escalona MD [ACTIVE - CAN ADMIT] - 1 Day (Call for appointment.) Olman Romo MD [Primary Care Provider] - 1-2 Weeks (Call for appointment.) Time spent managing pt's care (in minutes): 40
[2024-10-30 16:11] VITALS: BP 138/62
--- NOTE | 2024-10-31 08:40 | ECHO ---
HEIGHT: 5 ft 2 in WEIGHT: 223 lb 12.307 oz DATE OF STUDY: 10/28/[address]: Ankita Kwok NP 2-DIMENSIONAL: YES M.MODE: YES DOPPLER: YES COLOR FLOW: YES TDS: YES PORTABLE: YES DEFINITY: BUBBLE STUDY: DIAGNOSIS: FALL/ STROKE CARDIAC HISTORY: CATHERIZATION: YES SURGERY: PROSTHETIC VALVE: PACEMAKER: MEASUREMENTS (cm) DIASTOLIC (NORMALS) SYSTOLIC (NORMALS) IVSd 1.3 (0.6-1.2) LA Diam 4.3 (1.9-4.0) LVEF 60-65% LVIDd 4.1 (3.5-5.7) LVIDs 2.2 (2.0-3.5) %FS LVPWd 1.6 (0.6-1.2) Ao Diam 2.8 (2.0-3.7) 2 DIMENSIONAL ASSESSMENT: RIGHT ATRIUM: NORMAL LEFT ATRIUM: ENLARGED RIGHT VENTRICLE: NORMAL LEFT VENTRICLE: NORMAL TRICUSPID VALVE: MILD TRICUSPID REGURGITATION MITRAL VALVE: MILD MITRAL ANNULAR CALCIFICATION PULMONIC VALVE: NORMAL AORTIC VALVE: MODERATE AORTIC STENOSIS WITH MILD AORTIC INSUFFICIENCY PERICARDIAL EFFUSION: NONE AORTIC ROOT: NORMAL LEFT VENTRICULAR WALL MOTION: NORMAL DOPPLER/COLOR FLOW: SEE BELOW COMMENTS: 1. NORMAL LEFT VENTRICULAR EJECTION 60-65% 2. NORMAL WALL MOTION 3. LEFT ATRIAL ENLARGEMENT 4. MILD TRICUSPID REGURGITATION 5. MODERATE AORTIC STENOSIS AND MILD AORTIC INSUFFICIENCY TECHNOLOGIST: MINERVA NATION
--- NOTE | 2024-10-31 12:10 | EKG ---
Test Date: 2024-10-28 Test Time: 06:17:37 Ground Intelligence Officer: JOSELO MEASUREMENT RESULTS: Intervals: Rate: 61 KS: 224 QRSD: 112 QT: 454 QTc: 457 [place]: P: KS: 224 QRS: -44 T: 126 INTERPRETIVE STATEMENTS: AV dual-paced rhythm with prolonged AV conduction Abnormal ECG Compared to ECG 10/24/2024 13:39:49 Sinus rhythm no longer present Right-axis deviation no longer present Myocardial infarct finding no longer present T-wave abnormality no longer present Possible ischemia no longer present Electronically Signed On 10-31-24 12:03:10 CDT by Genaro Hood
== END 2024-10-30 17:00 | disposition home or self-care (01) | DRG 64 ==
LOC: ER 05:37 → ERHOLD 08:20 → 4TH 13:37 → OBSVTOIN 10-29 18:59
PROVIDERS: ADMIT Internal Medicine; ATTEND Internal Medicine
DX: I63.9 Cerebral infarction, unspecified (principal); I21.4 Non-ST elevation (NSTEMI) myocardial infarction; I48.20 Chronic atrial fibrillation, unspecified; I10 Essential (primary) hypertension; E78.5 Hyperlipidemia, unspecified; I35.0 Nonrheumatic aortic (valve) stenosis; I25.10 Atherosclerotic heart disease of native coronary artery without angina pectoris; R29.810 Facial weakness; R47.81 Slurred speech; R29.700 NIHSS score 0; Z95.0 Presence of cardiac pacemaker
CPT/HCPCS: 36415; 70450; 70496; 70498; 71045; 71046; 76937; 80048; 80061; 80076; 83735; 84100; 84436; 84443; 84484; 85025; 85347; 85610; 85730; 92610; 93005; 93306; 93460; 97112; 97116; 97161; 99152; 99153; 99285; C1725; C1893; C9600; G0378; J0461; J1644; J2003; J2250; J3010; J7030; J7040; Q9967

== ENCOUNTER 2025-04-26 11:04 | Day surgery (SDC) | payer OTHER ==
[2025-04-25 14:03] LABS: Absolute Lymphocytes (CBC) 1.8 K/uL (0.7-4.9); Hematocrit 40.6 % (39.6-49.0); Hemoglobin 13.6 g/dL (13.6-17.9); MCH 29.8 pg (27.0-35.0); MCHC 33.6 g/dL (32.0-36.0); MCV 88.9 fL (80-100); MPV 7.3 fL (7.6-11.3); Nucleated RBC Absolute Count 0.0 (0-0); Nucleated Red Blood Cells % 0.0 % (0-0); RBC Red Blood Cell Count 4.57 M/uL (4.33-5.43); White Blood Count 6.90 thou/uL (4.3-10.9)
[2025-04-25 14:11] LABS: PT Prothrombin Time 13.2 SECONDS (10-13.0); PTT, Activated Partial Thromb 35.5 SECONDS (27.2-37.4); Protime INR 1.17
[2025-04-25 14:31] LABS: Anion Gap 12.3 mEq/L (5.0-15.0); BUN Blood Urea Nitrogen 21.0 mg/dL (7-18); Glucose Level 119.0 mg/dL (74-106); Potassium 4.3 mEq/L (3.5-5.1)
[2025-04-26] MEDS ORDERED: NA CHLORIDE 0.9% 500 ML ONE (11:20)
[2025-04-26] MEDS ORDERED: HEPA 1000U/500MLS 2,000 UNIT/1,000 ML BAG IV ONE (11:31)
[2025-04-26] MEDS ORDERED: HEPARIN 5000 UNIT/ML 1 ML VIAL ONE (11:31)
[2025-04-26] MEDS ORDERED: LIDOCAINE 1% 20 ML MDV ONE (11:31)
[2025-04-26] MEDS ORDERED: HEPARIN 10,000 UNIT/10 ML VIAL IV ONE (11:31)
[2025-04-26] MEDS ORDERED: FENTANYL CITR 100 MCG/2 ML ONE (11:34)
[2025-04-26] MEDS ORDERED: MIDAZOLAM HCL 2 MG/2 ML INJ ONE (11:35)
[2025-04-26] MEDS ORDERED: VERAPAMIL HCL 10 MG/4 ML VIAL IV ONE (11:42)
[2025-04-26 11:46] VITALS: O2SAT 100
[2025-04-26] MEDS ORDERED: HEPA 1000U/500MLS 1,000 UNIT/500 ML BAG IV ONE (11:56)
[2025-04-26] MEDS ORDERED: ACETAMINOPHEN 325 MG TABLET ONE (13:37)
[2025-04-26 14:45] VITALS: BP 130/60
--- NOTE | 2025-04-26 23:44 | OP ---
Date of Procedure: 04/26/2025 Surgeon: MACY KIDD Procedures Performed: 1. Selective coronary angiogram. 2. Left heart catheterization. 3. Right heart catheterization. Indication: Aortic valve stenosis evaluation. Access: 1. Right IJ 7-Moroccan closed with manual pressure. 2. Right radial artery 6-Moroccan closed with TR band. Complications: None. Bleeding: Less than 50 mL. Total Sedation Time: 1 hour, used fentanyl and Versed. Description Of Procedure: After risks, benefits, and alternatives were explained, patient agreed to procedure and signed informed consent. The patient was brought into cardiac catheterization laborato , prepped and draped in usual sterile fashion. Then, I accessed right radial artery using pediatri c micropuncture kit and ultrasound guidance, placed a 6-Moroccan Slender sheath and then I accessed rig ht IJ using micropuncture kit, ultrasound guidance, and placed 7-Moroccan [place] sheath and took a 7- [place] balloon-tipped [place] catheter through the IJ access into the right atrium, right ventricle, pul monary artery and wedge, obtained waveform and pressure and then calculated cardiac output using the thermodilutional method and then removed the [place] and IJ access. Manual pressure was used for closur e with good hemostasis. Then, I used a 5-Moroccan [place] 4.0 catheter that was sent over the J-wire thr ough the radial access into the aortic root, engaged the left main, took standard views and in the RC A and took standard views. Then, across the aortic valve and exchanged for [place] catheter, did si multaneous measurements of aorta and the LV pressures and pullback did not record any gradient. Then , removed the catheter and the sheath, placed TR band with good hemostasis. Findings: 1. Coronary angiogram: a. Left main: Large and long and normal. b. LAD: Widely patent proximal to mid LAD stent, distally there is 30% to 40% stenosis. Diagona l branches are normal. c. Left circumflex: Moderate size with 40% in the OM. d. RCA: It is a moderate-size vessel with proximal 50% stenosis. e. LVEDP is 9 mmHg. 2. Right heart cath numbers: RA pressure is 2, RV pressure is 29/2, mean of 5. PA pressure is 29/12 , mean of 18. Pulmonary wedge pressure was 5-6 and LVEDP is 9 mmHg. Cardiac output was 6 L/minute. Mean gradient was 27.5 mmHg. Valve area is 1.2 sq cm. Conclusion: 1. Moderate aortic valve stenosis. 2. Widely patent LAD stent and moderate disease elsewhere. Recommendations: Medical management. Repeat echo in 6 months. SR/MODL Voice ID: [id number] Report ID: [id number]
== END 2025-04-26 14:30 | disposition home health service (06) ==
LOC: PRE 11:04 → CCL 14:30
PROVIDERS: ATTEND Internal Medicine
DX: I35.0 Nonrheumatic aortic (valve) stenosis (principal); I25.10 Atherosclerotic heart disease of native coronary artery without angina pectoris; I65.22 Occlusion and stenosis of left carotid artery; I48.0 Paroxysmal atrial fibrillation; I10 Essential (primary) hypertension; I27.20 Pulmonary hypertension, unspecified; Z95.5 Presence of coronary angioplasty implant and graft; Z79.82 Long term (current) use of aspirin; Z79.899 Other long term (current) drug therapy
CPT/HCPCS: 93005; 85025; 80048; 36415; 85610; 85730; 93460; 76937; C1893; Q9966; J1644 ×3; J2003; J2250; J3010; J7040; 99152; 99153